=== PATIENT | male | born 1960 | race Caucasian/White ===

== ENCOUNTER 2018-03-31 13:55 | Emergency (ER) | payer MEDICAID, OTHER ==
[~2018-03-31] VITALS: Ht 167.6 cm; Wt 136.1 kg
[~2018-03-31 13:55] MED LIST: ALBUAER3 IN; FLUO-125 PO; GEMF600T3 PO; GLYB5TAB8 PO; HYDR-2598 PO; METF-370 PO; NOR10T PO; TERA5CAP42 PO
[2018-03-31 14:11] VITALS: BP 140/67
[2018-03-31] MEDS ORDERED: HYDROcodone-ACET 7.5/325MG TAB PO ONE (16:15)
== END 2018-03-31 16:49 | disposition home or self-care (01) ==
LOC: ER 13:55
DX: S82.891A Other fracture of right lower leg, initial encounter for closed fracture (principal); S01.01XA Laceration without foreign body of scalp, initial encounter; J44.9 Chronic obstructive pulmonary disease, unspecified; E11.9 Type 2 diabetes mellitus without complications; W01.0XXA Fall on same level from slipping, tripping and stumbling without subsequent striking against object, initial encounter; Y93.89 Activity, other specified; Y92.89 Other specified places as the place of occurrence of the external cause; Y99.8 Other external cause status
CPT/HCPCS: 12002; 29515; 70450; 73610; 82962

== ENCOUNTER 2022-01-31 13:50 | Inpatient (IN) | payer MEDICAID ==
[~2022-01-31] VITALS: Ht 167.6 cm; Wt 140.9 kg
[~2022-01-31 13:50] MED LIST changes: +GEMF-19 PO; -GEMF600T3 PO
[2022-01-31] MEDS ORDERED: HYDROcodone-ACET 5/325MG TAB PO ONE (19:00)
[2022-01-31 22:05] LABS: Basophils # (auto) 0 10 ^3/uL (0-0.2); Basophils % (auto) 0.5 % (0.0-2.0); Eosinophils # (auto) 0.3 10 ^3/uL (0-0.8); Eosinophils % (auto) 3.9 % (0.0-7.0); Hematocrit 51.4 % (41.0-53.0); Hemoglobin 16.6 g/dL (13.5-17.5); Lymphocytes # (auto) 1.1 10 ^3/uL (0.4-5.4); Lymphocytes % (auto) 15.9 % (10.0-50.0); Mean Corpuscular Hemoglobin 28.5 pg (28.0-32.0); Mean Corpuscular Hgb Conc. 32.4 g/dL (32.0-36.0); Mean Corpuscular Volume 88.1 fL (80.0-100.0); Monocytes # (auto) 0.6 10 ^3/uL (0-1.3); Monocytes % (auto) 8.6 % (0.0-12.0); Neutrophils # (auto) 4.9 10 ^3/uL (1.6-8.6); Neutrophils % (auto) 71.1 % (37.0-80.0); Nucleated Red Blood Cells % 0.3 %; Red Blood Cells 5.83 10^6/uL (4.5-5.90); Red Cell Distribution Width 14.5 % (11.8-14.3); White Blood Cell 6.9 10^3/uL (4.4-10.8)
[2022-01-31 22:24] LABS: Albumin 3.3 g/dL (3.4-5.0); BUN/Creatinine Ratio 15.8; Potassium 4.7 mmol/L (3.5-5.1)
[2022-01-31 22:39] LABS: Bilirubin, Total 0.4 mg/dL (0.2-1.0); Total Protein 7.7 g/dL (6.4-8.2)
[2022-01-31] MEDS ORDERED: HYDR-4902 PO (23:06)
[2022-02-01] VITALS (7 sets, daily range): BP systolic 111–132; BP diastolic 56–74
[2022-02-01] MEDS ORDERED: DOCUSATE SOD 100 MG CAP PO PRN (00:15)
[2022-02-01] MEDS ORDERED: MORPHINE SULFATE 4 MG/ML SYR/VIAL IV PRN (00:15)
[2022-02-01] MEDS ORDERED: NITROGLYCERIN 0.4 MG SL TAB SL PRN (00:15)
[2022-02-01] MEDS ORDERED: ONDANSETRON HCL 4 MG/2 ML VIAL IV PRN (00:15)
[2022-02-01] MEDS ORDERED: ACETAMINOPHEN 325 MG TAB PO PRN (00:15)
[2022-02-01] MEDS ORDERED: TEMAZEPAM 15 MG CAP PO PRN (00:15)
[2022-02-01] MEDS ORDERED: MORPHINE SULFATE INJECTION 2 MG/ML SYRG IV PRN (00:15)
[2022-02-01] MEDS ORDERED: HYDROcodone-ACET 5/325MG TAB PO PRN (00:15)
[2022-02-01] MEDS ORDERED: HYDROcodone-ACET 5/325MG TAB PO ONE (00:30)
[2022-02-01] MEDS: methylPREDNISolone SOD SUCC 125 MG/2 ML VL IV SCH ×3 (06:00→21:23)
[2022-02-01] MEDS: MULTIPLE VITAMIN TAB PO SCH (10:53)
[2022-02-01] MEDS: ZINC SULFATE 220mg CAP or TAB PO SCH (10:53)
[2022-02-01] MEDS: ASCORBIC ACID 500 MG TAB PO SCH ×2 (10:53→21:23)
[2022-02-01] MEDS: ENOXAPARIN SOD 40 MG/0.4 ML SYRINGE SC SCH (10:54)
[2022-02-01] MEDS: levoFLOXacin 500MG 100 ML IV SCH (10:54)
[2022-02-02 02:00] VITALS: BP 132/74
[2022-02-02 05:00] VITALS: BP 103/51
[2022-02-02 05:23] LABS: Basophils # (auto) 0 10 ^3/uL (0-0.2); Basophils % (auto) 0.4 % (0.0-2.0); Eosinophils # (auto) 0 10 ^3/uL (0-0.8); Hematocrit 50.3 % (41.0-53.0); Hemoglobin 16.7 g/dL (13.5-17.5); Lymphocytes # (auto) 0.6 10 ^3/uL (0.4-5.4); Lymphocytes % (auto) 7.7 % (10.0-50.0); Mean Corpuscular Hgb Conc. 33.3 g/dL (32.0-36.0); Mean Corpuscular Volume 87.2 fL (80.0-100.0); Monocytes # (auto) 0.3 10 ^3/uL (0-1.3); Monocytes % (auto) 3.2 % (0.0-12.0); Neutrophils # (auto) 7.4 10 ^3/uL (1.6-8.6); Neutrophils % (auto) 88.7 % (37.0-80.0); Nucleated Red Blood Cells % 0.5 %; Red Blood Cells 5.76 10^6/uL (4.5-5.90); Red Cell Distribution Width 14.2 % (11.8-14.3); White Blood Cell 8.3 10^3/uL (4.4-10.8)
[2022-02-02] MEDS: methylPREDNISolone SOD SUCC 125 MG/2 ML VL IV SCH ×2 (05:24→14:33)
[2022-02-02 05:42] LABS: Albumin 3.2 g/dL (3.4-5.0); Calcium 9.2 mg/dL (8.5-10.1); Potassium 4.7 mmol/L (3.5-5.1); Uric Acid 5.5 mg/dL (3.5-7.2)
[2022-02-02 05:52] LABS: BUN/Creatinine Ratio 21.1; Bilirubin, Total 0.4 mg/dL (0.2-1.0); CRP High Sensitivity 0.96 mg/dL (< 0.3)
[2022-02-02] MEDS ORDERED: IOHEXOL 350 MG/ML 100ML IJ ONE (07:25)
[2022-02-02 08:25] VITALS: BP 111/68
[2022-02-02] MEDS: ASCORBIC ACID 500 MG TAB PO SCH ×2 (11:08→21:05)
[2022-02-02] MEDS: MULTIPLE VITAMIN TAB PO SCH (11:08)
[2022-02-02] MEDS: ENOXAPARIN SOD 40 MG/0.4 ML SYRINGE SC SCH (11:08)
[2022-02-02] MEDS: ZINC SULFATE 220mg CAP or TAB PO SCH (11:08)
[2022-02-02] MEDS: levoFLOXacin 500MG 100 ML IV SCH (11:09)
[2022-02-02 17:30] VITALS: BP 115/46
[2022-02-02] MEDS: DexAMETHasone 4 MG TAB PO SCH (21:05)
[2022-02-02 22:00] VITALS: BP 117/63
[2022-02-03 05:00] VITALS: BP 114/64
[2022-02-03 05:41] LABS: Albumin 3.1 g/dL (3.4-5.0); Calcium 8.8 mg/dL (8.5-10.1); Potassium 5.1 mmol/L (3.5-5.1)
[2022-02-03 05:44] LABS: BUN/Creatinine Ratio 23.3
[2022-02-03 05:47] LABS: Basophils # (auto) 0 10 ^3/uL (0-0.2); Basophils % (auto) 0.3 % (0.0-2.0); Bilirubin, Total 0.2 mg/dL (0.2-1.0); Eosinophils # (auto) 0 10 ^3/uL (0-0.8); Eosinophils % (auto) 0.1 % (0.0-7.0); Hematocrit 50.4 % (41.0-53.0); Hemoglobin 16.3 g/dL (13.5-17.5); Lymphocytes # (auto) 0.8 10 ^3/uL (0.4-5.4); Lymphocytes % (auto) 6.3 % (10.0-50.0); Mean Corpuscular Hemoglobin 28.5 pg (28.0-32.0); Mean Corpuscular Hgb Conc. 32.4 g/dL (32.0-36.0); Monocytes # (auto) 0.7 10 ^3/uL (0-1.3); Monocytes % (auto) 5.5 % (0.0-12.0); Neutrophils # (auto) 11.4 10 ^3/uL (1.6-8.6); Neutrophils % (auto) 87.8 % (37.0-80.0); Nucleated Red Blood Cells % 0.2 %; Red Blood Cells 5.73 10^6/uL (4.5-5.90); Red Cell Distribution Width 14.5 % (11.8-14.3); Total Protein 7.4 g/dL (6.4-8.2)
[2022-02-03 09:00] VITALS: BP 116/51
[2022-02-03] MEDS: ENOXAPARIN SOD 40 MG/0.4 ML SYRINGE SC SCH (10:10)
[2022-02-03] MEDS: ZINC SULFATE 220mg CAP or TAB PO SCH (10:10)
[2022-02-03] MEDS: MULTIPLE VITAMIN TAB PO SCH (10:10)
[2022-02-03] MEDS: DexAMETHasone 4 MG TAB PO SCH (10:10)
[2022-02-03] MEDS: ASCORBIC ACID 500 MG TAB PO SCH (10:10)
[2022-02-03 13:00] VITALS: BP 115/59
[2022-02-03] MEDS ORDERED: DEX4T PO (13:23)
[2022-02-03 14:43] VITALS: BP 115/59
== END 2022-02-03 16:07 | disposition home or self-care (01) | DRG 48 ==
LOC: ER 13:50 → TELE 02-01 00:03 → TELE-WESTW 02-01 08:59
PROVIDERS: ADMIT Internal Medicine; ATTEND Internal Medicine
PROC: 5A09357 Assistance with Respiratory Ventilation, Less than 24 Consecutive Hours, Continuous Positive Airway Pressure (ICD-10-PCS; principal; 2022-02-01)
PROC: 5A09357 Assistance with Respiratory Ventilation, Less than 24 Consecutive Hours, Continuous Positive Airway Pressure (ICD-10-PCS; 2022-02-02)
DX: G56.03 Carpal tunnel syndrome, bilateral upper limbs (principal); J96.20 Acute and chronic respiratory failure, unspecified whether with hypoxia or hypercapnia; Z99.81 Dependence on supplemental oxygen; J44.1 Chronic obstructive pulmonary disease with (acute) exacerbation; G47.33 Obstructive sleep apnea (adult) (pediatric); I10 Essential (primary) hypertension; J98.11 Atelectasis; E88.09 Other disorders of plasma-protein metabolism, not elsewhere classified; E66.01 Morbid (severe) obesity due to excess calories; Z20.822 Contact with and (suspected) exposure to COVID-19; E11.65 Type 2 diabetes mellitus with hyperglycemia; Z68.43 Body mass index [BMI] 50.0-59.9, adult; Z79.84 Long term (current) use of oral hypoglycemic drugs
CPT/HCPCS: 36415; 71045; 71275; 72125; 73100; 73110; 80053; 80061; 82306; 82607; 83036; 83880; 84484; 84550; 85025; 85379; 85652; 86141; 86431; 93306; 93970; 94660; G0378; J1956

== ENCOUNTER 2022-02-24 12:19 | Inpatient (IN) | payer MEDICAID ==
[~2022-02-24] VITALS: Ht 167.6 cm; Wt 135.9 kg
[~2022-02-24 12:19] MED LIST changes: +DEX4T PO; -HYDR-2598 PO; +HYDR-4902 PO; -NOR10T PO
[2022-02-24 13:14] LABS: Basophils # (auto) 0 10 ^3/uL (0-0.2); Basophils % (auto) 0.7 % (0.0-2.0); Eosinophils # (auto) 0.3 10 ^3/uL (0-0.8); Eosinophils % (auto) 4.2 % (0.0-7.0); Hematocrit 49.7 % (41.0-53.0); Hemoglobin 16.5 g/dL (13.5-17.5); Lymphocytes # (auto) 1.2 10 ^3/uL (0.4-5.4); Lymphocytes % (auto) 19.3 % (10.0-50.0); Mean Corpuscular Hemoglobin 28.4 pg (28.0-32.0); Mean Corpuscular Hgb Conc. 33.2 g/dL (32.0-36.0); Mean Corpuscular Volume 85.7 fL (80.0-100.0); Monocytes # (auto) 0.4 10 ^3/uL (0-1.3); Neutrophils # (auto) 4.3 10 ^3/uL (1.6-8.6); Neutrophils % (auto) 68.8 % (37.0-80.0); Nucleated Red Blood Cells % 0.3 %; Red Cell Distribution Width 14.4 % (11.8-14.3); White Blood Cell 6.2 10^3/uL (4.4-10.8)
[2022-02-24 13:43] LABS: Albumin 3.2 g/dL (3.4-5.0); Calcium 9.5 mg/dL (8.5-10.1); Potassium 4.5 mmol/L (3.5-5.1)
[2022-02-24 13:46] LABS: BUN/Creatinine Ratio 22.4; Bilirubin, Total 0.3 mg/dL (0.2-1.0); Total Protein 7.8 g/dL (6.4-8.2)
[2022-02-24] MEDS ORDERED: IOHEXOL 350 MG/ML 100ML IJ ONE (14:44)
[2022-02-24] MEDS ORDERED: methylPREDNISolone SOD SUCC 125 MG/2 ML VL IV ONE (14:45)
[2022-02-24] MEDS ORDERED: FUROSEMIDE 20 MG/2 ML VIAL IV ONE (14:45)
[2022-02-24] MEDS ORDERED: ONDANSETRON HCL 4 MG/2 ML VIAL IV PRN (16:00)
[2022-02-24] MEDS ORDERED: MORPHINE SULFATE INJECTION 2 MG/ML SYRG IV PRN (16:00)
[2022-02-24] MEDS ORDERED: ACETAMINOPHEN 325 MG TAB PO PRN (16:00)
[2022-02-24] MEDS ORDERED: NITROGLYCERIN 0.4 MG SL TAB SL PRN (16:00)
[2022-02-24] MEDS ORDERED: DOCUSATE SOD 100 MG CAP PO PRN (16:00)
[2022-02-24 18:50] LABS: Urine Bacteria NONE SEEN /hpf (None Seen); Urine Blood Negative /uL (Negative); Urine Hyaline Cast FEW /lpf (0 - 2); Urine Mucus FEW (None Seen); Urine Specific Gravity 1.049 (1.001-1.035); Urine WBC <1 /hpf (0 - 3)
[2022-02-24 22:00] VITALS: BP 122/55
[2022-02-24 22:09] VITALS: BP 123/84
[2022-02-25] VITALS (8 sets, daily range): BP systolic 104–127; BP diastolic 41–67
[2022-02-25 06:23] LABS: Basophils # (auto) 0 10 ^3/uL (0-0.2); Eosinophils # (auto) 0 10 ^3/uL (0-0.8); Hematocrit 48.2 % (41.0-53.0); Hemoglobin 16.3 g/dL (13.5-17.5); Lymphocytes # (auto) 0.7 10 ^3/uL (0.4-5.4); Lymphocytes % (auto) 13.5 % (10.0-50.0); Mean Corpuscular Hemoglobin 29.4 pg (28.0-32.0); Mean Corpuscular Hgb Conc. 33.9 g/dL (32.0-36.0); Mean Corpuscular Volume 86.6 fL (80.0-100.0); Monocytes # (auto) 0.1 10 ^3/uL (0-1.3); Monocytes % (auto) 2.5 % (0.0-12.0); Neutrophils # (auto) 4.2 10 ^3/uL (1.6-8.6); Nucleated Red Blood Cells % 0.1 %; Red Blood Cells 5.56 10^6/uL (4.5-5.90); Red Cell Distribution Width 14.4 % (11.8-14.3)
[2022-02-25 06:25] LABS: Potassium 4.6 mmol/L (3.5-5.1)
[2022-02-25 06:34] LABS: Albumin 3.2 g/dL (3.4-5.0); Bilirubin, Total 0.4 mg/dL (0.2-1.0); Calcium 9.4 mg/dL (8.5-10.1); Total Protein 7.8 g/dL (6.4-8.2)
[2022-02-25] MEDS ORDERED: ENOXAPARIN SOD 40 MG/0.4 ML SYRINGE SC SCH (10:00)
[2022-02-25] MEDS: methylPREDNISolone SOD SUCC 40 MG/ML VL IV SCH ×2 (13:31→22:13)
[2022-02-25] MEDS: IPRATROPIUM BROM 0.5 MG/2.5ML INH SOL NEB SCH ×2 (14:33→18:35)
[2022-02-25] MEDS: BUDESONIDE (INHALATION) 0.5 MG/2 ML NEB NEB SCH (18:35)
[2022-02-25] MEDS: ENOXAPARIN SOD 40 MG/0.4 ML SYRINGE SC SCH (22:13)
[2022-02-26 05:02] VITALS: BP 112/47
[2022-02-26] MEDS: methylPREDNISolone SOD SUCC 40 MG/ML VL IV SCH ×3 (06:00→21:12)
[2022-02-26] MEDS: IPRATROPIUM BROM 0.5 MG/2.5ML INH SOL NEB SCH ×5 (06:36→22:54)
[2022-02-26] MEDS: BUDESONIDE (INHALATION) 0.5 MG/2 ML NEB NEB SCH ×2 (06:36→18:49)
[2022-02-26 08:00] VITALS: BP_SYST 110; BP_SYST 119; BP_DIAS 46; BP_DIAS 56
[2022-02-26] MEDS: cefTRIAXone 1GM/50ML D5W 50 ML IV SCH (08:24)
[2022-02-26] MEDS: ENOXAPARIN SOD 40 MG/0.4 ML SYRINGE SC SCH ×2 (10:24→21:11)
[2022-02-26] MEDS: AZITHROMYCIN 250 MG TAB PO SCH (10:24)
[2022-02-26 12:00] VITALS: BP 145/95
[2022-02-26 16:00] VITALS: BP 116/50
[2022-02-26 21:47] VITALS: BP 129/72
[2022-02-27 05:13] VITALS: BP 143/84
[2022-02-27] MEDS: methylPREDNISolone SOD SUCC 40 MG/ML VL IV SCH ×3 (05:57→22:11)
[2022-02-27] MEDS: BUDESONIDE (INHALATION) 0.5 MG/2 ML NEB NEB SCH ×2 (06:15→19:06)
[2022-02-27] MEDS: IPRATROPIUM BROM 0.5 MG/2.5ML INH SOL NEB SCH ×5 (06:15→22:35)
[2022-02-27] MEDS: cefTRIAXone 1GM/50ML D5W 50 ML IV SCH (08:19)
[2022-02-27] MEDS ORDERED: FUROSEMIDE 40 MG/4 ML VIAL IV ONE (08:30)
[2022-02-27 09:00] VITALS: BP 110/71
[2022-02-27] MEDS: ENOXAPARIN SOD 40 MG/0.4 ML SYRINGE SC SCH ×2 (10:13→22:11)
[2022-02-27] MEDS: AZITHROMYCIN 250 MG TAB PO SCH (10:13)
[2022-02-27] MEDS ORDERED: DEXTROSE (50%) 50ML SYRG IV PRN (11:30)
[2022-02-27] MEDS: InsuLIN REG 1unit/0.01ml Soln (100units/ml) SC SCH ×3 (12:11→22:10)
[2022-02-27] MEDS: ACCU-CHEK COMFORT CURVE STRIP VI SCH ×3 (12:18→22:11)
[2022-02-27 14:00] VITALS: BP 129/82
[2022-02-27] MEDS: glyBURIDE 5 MG TAB PO SCH ×2 (15:23→22:13)
[2022-02-27 17:00] VITALS: BP 126/70
[2022-02-27 22:00] VITALS: BP 128/68
[2022-02-27] MEDS: metFORMIN HYDROCHLORIDE 500 MG TAB PO SCH (22:12)
[2022-02-28] VITALS (8 sets, daily range): BP systolic 108–128; BP diastolic 60–71
[2022-02-28] MEDS: methylPREDNISolone SOD SUCC 40 MG/ML VL IV SCH ×3 (06:44→21:34)
[2022-02-28] MEDS: glyBURIDE 5 MG TAB PO SCH ×3 (06:45→21:41)
[2022-02-28] MEDS: ACCU-CHEK COMFORT CURVE STRIP VI SCH ×4 (06:45→21:35)
[2022-02-28] MEDS: InsuLIN REG 1unit/0.01ml Soln (100units/ml) SC SCH ×4 (06:47→21:29)
[2022-02-28] MEDS: IPRATROPIUM BROM 0.5 MG/2.5ML INH SOL NEB SCH ×5 (08:03→22:16)
[2022-02-28] MEDS: BUDESONIDE (INHALATION) 0.5 MG/2 ML NEB NEB SCH ×2 (08:03→18:56)
[2022-02-28] MEDS: ENOXAPARIN SOD 40 MG/0.4 ML SYRINGE SC SCH ×2 (09:29→21:35)
[2022-02-28] MEDS: cefTRIAXone 1GM/50ML D5W 50 ML IV SCH (09:29)
[2022-02-28] MEDS: metFORMIN HYDROCHLORIDE 500 MG TAB PO SCH ×2 (09:30→21:34)
[2022-02-28] MEDS: FLUoxetine HCL 20 MG CAP PO SCH (09:30)
[2022-02-28] MEDS: TERAZOSIN HCL 5 MG CAP PO SCH (09:30)
[2022-02-28] MEDS: GEMFIBROZIL 600 MG TAB PO SCH (09:30)
[2022-02-28] MEDS: AZITHROMYCIN 250 MG TAB PO SCH (09:30)
[2022-02-28] MEDS ORDERED: BUDE0.5S IN (17:12)
[2022-02-28] MEDS ORDERED: ALB5IS NEB (17:12)
[2022-02-28] MEDS ORDERED: DOXY-346 PO (17:12)
[2022-02-28] MEDS ORDERED: PRED20TA2 PO (17:13)
[2022-03-01 05:00] VITALS: BP 132/78
[2022-03-01] MEDS: methylPREDNISolone SOD SUCC 40 MG/ML VL IV SCH (06:12)
[2022-03-01] MEDS: ACCU-CHEK COMFORT CURVE STRIP VI SCH ×2 (06:13→11:50)
[2022-03-01] MEDS: InsuLIN REG 1unit/0.01ml Soln (100units/ml) SC SCH ×2 (06:14→12:02)
[2022-03-01] MEDS: IPRATROPIUM BROM 0.5 MG/2.5ML INH SOL NEB SCH ×2 (06:18→10:01)
[2022-03-01] MEDS: BUDESONIDE (INHALATION) 0.5 MG/2 ML NEB NEB SCH (06:19)
[2022-03-01] MEDS: glyBURIDE 5 MG TAB PO SCH (07:03)
[2022-03-01 08:00] VITALS: BP 123/69
[2022-03-01 09:00] VITALS: BP 123/69
[2022-03-01] MEDS: cefTRIAXone 1GM/50ML D5W 50 ML IV SCH (09:15)
[2022-03-01] MEDS: metFORMIN HYDROCHLORIDE 500 MG TAB PO SCH (10:00)
[2022-03-01] MEDS: TERAZOSIN HCL 5 MG CAP PO SCH (10:00)
[2022-03-01] MEDS: GEMFIBROZIL 600 MG TAB PO SCH (10:00)
[2022-03-01] MEDS: ENOXAPARIN SOD 40 MG/0.4 ML SYRINGE SC SCH (10:00)
[2022-03-01] MEDS: FLUoxetine HCL 20 MG CAP PO SCH (10:00)
== END 2022-03-01 13:00 | disposition home health service (06) | DRG 139 ==
LOC: ER 12:19 → TELE 15:47 → TELE-EAST 20:35
PROVIDERS: ADMIT Nurse Practitioner; ATTEND Nurse Practitioner
PROC: 5A09357 Assistance with Respiratory Ventilation, Less than 24 Consecutive Hours, Continuous Positive Airway Pressure (ICD-10-PCS; principal; 2022-02-24)
PROC: 5A09357 Assistance with Respiratory Ventilation, Less than 24 Consecutive Hours, Continuous Positive Airway Pressure (ICD-10-PCS; 2022-02-25)
PROC: 5A09357 Assistance with Respiratory Ventilation, Less than 24 Consecutive Hours, Continuous Positive Airway Pressure (ICD-10-PCS; 2022-02-26)
PROC: 5A09357 Assistance with Respiratory Ventilation, Less than 24 Consecutive Hours, Continuous Positive Airway Pressure (ICD-10-PCS; 2022-02-27)
PROC: 5A09357 Assistance with Respiratory Ventilation, Less than 24 Consecutive Hours, Continuous Positive Airway Pressure (ICD-10-PCS; 2022-02-28)
DX: J18.9 Pneumonia, unspecified organism (principal); J96.21 Acute and chronic respiratory failure with hypoxia; I50.43 Acute on chronic combined systolic (congestive) and diastolic (congestive) heart failure; J44.1 Chronic obstructive pulmonary disease with (acute) exacerbation; I11.0 Hypertensive heart disease with heart failure; E11.65 Type 2 diabetes mellitus with hyperglycemia; E66.01 Morbid (severe) obesity due to excess calories; G47.33 Obstructive sleep apnea (adult) (pediatric); F32.A Depression, unspecified; R00.1 Bradycardia, unspecified; M19.90 Unspecified osteoarthritis, unspecified site; J98.11 Atelectasis; J44.0 Chronic obstructive pulmonary disease with (acute) lower respiratory infection; Z80.6 Family history of leukemia; Z87.01 Personal history of pneumonia (recurrent); Z99.81 Dependence on supplemental oxygen; Z68.42 Body mass index [BMI] 45.0-49.9, adult; Z80.1 Family history of malignant neoplasm of trachea, bronchus and lung; Z79.899 Other long term (current) drug therapy
CPT/HCPCS: 36415; 71045; 71275; 80053; 81001; 82962; 83880; 84484; 85025; 87081; 93005; 94640; 94660; 96374; 96375; 99291; G0378; J0696; J1815

== ENCOUNTER 2022-09-22 19:26 | Inpatient (IN) | payer MEDICAID ==
[~2022-09-22] VITALS: Ht 167.6 cm; Wt 140.3 kg
[~2022-09-22 19:26] MED LIST changes: +ALB5IS NEB; +BUDE0.5S IN; -DEX4T PO; +DOXY-346 PO; +PRED20TA2 PO
[2022-09-22 20:22] LABS: Basophils # (auto) 0 10 ^3/uL (0-0.2); Basophils % (auto) 0.6 % (0.0-2.0); Eosinophils # (auto) 0.3 10 ^3/uL (0-0.8); Eosinophils % (auto) 5.6 % (0.0-7.0); Hematocrit 47.5 % (41.0-53.0); Hemoglobin 15.4 g/dL (13.5-17.5); Lymphocytes # (auto) 1.7 10 ^3/uL (0.4-5.4); Lymphocytes % (auto) 29.3 % (10.0-50.0); Mean Corpuscular Hemoglobin 28.2 pg (28.0-32.0); Mean Corpuscular Hgb Conc. 32.5 g/dL (32.0-36.0); Mean Corpuscular Volume 86.5 fL (80.0-100.0); Monocytes # (auto) 0.5 10 ^3/uL (0-1.3); Monocytes % (auto) 9.1 % (0.0-12.0); Neutrophils # (auto) 3.3 10 ^3/uL (1.6-8.6); Neutrophils % (auto) 55.4 % (37.0-80.0); Nucleated Red Blood Cells % 0.1 %; Red Blood Cells 5.48 10^6/uL (4.5-5.90); Red Cell Distribution Width 15.5 % (11.8-14.3); White Blood Cell 5.9 10^3/uL (4.4-10.8)
[2022-09-22 20:37] LABS: INR 0.93 (0.9-1.15); Partial Thromboplastin Time 26.3 sec (24.6-33.4)
[2022-09-22 20:41] LABS: Albumin 3.6 g/dL (3.4-5.0); BUN/Creatinine Ratio 18.6; Calcium 8.8 mg/dL (8.5-10.1); Potassium 4.8 mmol/L (3.5-5.1)
[2022-09-22 20:44] LABS: Bilirubin, Total 0.4 mg/dL (0.2-1.0); Total Protein 7.2 g/dL (6.4-8.2)
[2022-09-22] MEDS ORDERED: ALBUTEROL SULF 2.5 MG/0.5ML(0.5%) NEB SOLN NEB ONE (22:00)
[2022-09-23] MEDS ORDERED: ALBUTEROL SULF 2.5 MG/0.5ML(0.5%) NEB SOLN NEB ONE ×2 (02:15→03:30)
[2022-09-23] MEDS ORDERED: DexAMETHasone SOD PHOS 10MG/1ML VIAL INJ IV ONE (03:30)
[2022-09-23] MEDS ORDERED: SODIUM CHLORIDE 0.9% 1,000 ML IV ONE (03:30)
[2022-09-23] MEDS ORDERED: DOCUSATE SOD 100 MG CAP PO PRN (04:00)
[2022-09-23] MEDS ORDERED: IPRATROPIUM BROM 0.5 MG/2.5ML INH SOL NEB PRN (04:00)
[2022-09-23] MEDS ORDERED: ALBUTEROL SULF 2.5 MG/0.5ML(0.5%) NEB SOLN NEB PRN (04:00)
[2022-09-23] MEDS ORDERED: ONDANSETRON HCL 4 MG/2 ML VIAL IV PRN (04:00)
[2022-09-23] MEDS ORDERED: HYDROcodone-ACET 5/325MG TAB PO PRN (04:00)
[2022-09-23] MEDS ORDERED: DEXTROSE (50%) 50ML SYRG IV PRN (04:00)
[2022-09-23] MEDS ORDERED: ACETAMINOPHEN 325 MG TAB PO PRN (04:00)
[2022-09-23] MEDS: methylPREDNISolone SOD SUCC 40 MG/ML VL IV SCH ×3 (04:15→22:27)
[2022-09-23] MEDS ORDERED: NITROGLYCERIN 0.4 MG SL TAB SL PRN (04:30)
[2022-09-23] MEDS ORDERED: MORPHINE SULFATE INJ 2 MG/ml SYRG IV PRN (04:30)
[2022-09-23] MEDS ORDERED: AZITHROMYCIN 500MG/ 250ML 250 ML IV ONE (04:30)
[2022-09-23] MEDS: SODIUM CHLOR 0.9% PF (SALINE LOCK) 10ML VIAL/SYR IV SCH ×3 (06:01→22:27)
[2022-09-23 06:30] VITALS: BP 129/65
[2022-09-23 06:40] LABS: Basophils # (auto) 0 10 ^3/uL (0-0.2); Basophils % (auto) 0.5 % (0.0-2.0); Eosinophils # (auto) 0.2 10 ^3/uL (0-0.8); Eosinophils % (auto) 2.4 % (0.0-7.0); Hematocrit 44.4 % (41.0-53.0); Hemoglobin 14.4 g/dL (13.5-17.5); Lymphocytes # (auto) 1.1 10 ^3/uL (0.4-5.4); Lymphocytes % (auto) 17.5 % (10.0-50.0); Mean Corpuscular Hemoglobin 28.4 pg (28.0-32.0); Mean Corpuscular Hgb Conc. 32.4 g/dL (32.0-36.0); Mean Corpuscular Volume 87.7 fL (80.0-100.0); Monocytes # (auto) 0.4 10 ^3/uL (0-1.3); Monocytes % (auto) 6.5 % (0.0-12.0); Neutrophils # (auto) 4.7 10 ^3/uL (1.6-8.6); Neutrophils % (auto) 73.1 % (37.0-80.0); Nucleated Red Blood Cells % 0.1 %; Red Blood Cells 5.06 10^6/uL (4.5-5.90); Red Cell Distribution Width 15.6 % (11.8-14.3); White Blood Cell 6.4 10^3/uL (4.4-10.8)
[2022-09-23] MEDS: ACCU-CHEK COMFORT CURVE STRIP VI SCH ×4 (06:56→22:27)
[2022-09-23 06:57] LABS: Albumin 3.5 g/dL (3.4-5.0); BUN/Creatinine Ratio 21.7; Calcium 8.4 mg/dL (8.5-10.1); Potassium 4.3 mmol/L (3.5-5.1)
[2022-09-23] MEDS: InsuLIN REG 1unit/0.01ml Soln (100units/ml) SC SCH ×3 (06:58→17:34)
[2022-09-23 07:00] LABS: Bilirubin, Total 0.4 mg/dL (0.2-1.0); Total Protein 7.3 g/dL (6.4-8.2)
[2022-09-23] MEDS ORDERED: ENOXAPARIN SOD 40 MG/0.4 ML SYRINGE SC SCH (10:00)
[2022-09-23] MEDS: FAMOTIDINE (10MG/ML) 2ML VL IV SCH ×2 (12:05→22:27)
[2022-09-23] MEDS: AZITHROMYCIN 500MG/ 250ML 250 ML IV SCH (12:05)
[2022-09-23] MEDS ORDERED: REMDESIVIR PER PHARMACY 0 ML IV SCH (12:15)
[2022-09-23] MEDS ORDERED: REMDESIVIR 200 MG in NS 210ml LOADING DOSE ADULT IV ONE (12:45)
[2022-09-23] MEDS ORDERED: OSELTAMIVIR 75 MG CAP PO ONE (13:30)
[2022-09-23] MEDS ORDERED: OSELTAMIVIR 75 MG CAP PO SCH (14:00)
[2022-09-23] MEDS ORDERED: REMDESIVIR 100mg 100 MG in SODIUM CHL 0.9% 230 ML IV SCH (15:00)
[2022-09-23] MEDS: ALBUTEROL SULF HFA 90MCG INH 200DOSE IN SCH ×2 (15:39→22:00)
[2022-09-23] MEDS ORDERED: INSU1INJ19 SC (18:30)
[2022-09-23 22:00] VITALS: BP 128/62
[2022-09-23] MEDS ORDERED: InsuLIN REG 1unit/0.01ml Soln (100units/ml) SC SCH (22:00)
[2022-09-23] MEDS: OSELTAMIVIR 75 MG CAP PO SCH (22:00)
[2022-09-23] MEDS: ENOXAPARIN SOD 40 MG/0.4 ML SYRINGE SC SCH (22:27)
[2022-09-24 05:01] LABS: Basophils # (auto) 0 10 ^3/uL (0-0.2); Basophils % (auto) 0.1 % (0.0-2.0); Eosinophils # (auto) 0 10 ^3/uL (0-0.8); Hematocrit 46.2 % (41.0-53.0); Hemoglobin 14.6 g/dL (13.5-17.5); Lymphocytes # (auto) 0.7 10 ^3/uL (0.4-5.4); Lymphocytes % (auto) 10.6 % (10.0-50.0); Mean Corpuscular Hemoglobin 27.7 pg (28.0-32.0); Mean Corpuscular Hgb Conc. 31.7 g/dL (32.0-36.0); Mean Corpuscular Volume 87.3 fL (80.0-100.0); Monocytes # (auto) 0.2 10 ^3/uL (0-1.3); Monocytes % (auto) 3.5 % (0.0-12.0); Neutrophils # (auto) 5.8 10 ^3/uL (1.6-8.6); Neutrophils % (auto) 85.8 % (37.0-80.0); Red Blood Cells 5.29 10^6/uL (4.5-5.90); Red Cell Distribution Width 15.6 % (11.8-14.3); White Blood Cell 6.8 10^3/uL (4.4-10.8)
[2022-09-24 05:22] LABS: Albumin 3.4 g/dL (3.4-5.0); Calcium 8.5 mg/dL (8.5-10.1)
[2022-09-24 05:28] VITALS: BP 107/57
[2022-09-24 05:30] LABS: BUN/Creatinine Ratio 20.7; Bilirubin, Total 0.5 mg/dL (0.2-1.0)
[2022-09-24] MEDS: methylPREDNISolone SOD SUCC 40 MG/ML VL IV SCH ×2 (05:52→14:37)
[2022-09-24] MEDS: SODIUM CHLOR 0.9% PF (SALINE LOCK) 10ML VIAL/SYR IV SCH ×2 (05:52→14:36)
[2022-09-24] MEDS: ACCU-CHEK COMFORT CURVE STRIP VI SCH ×2 (05:53→12:18)
[2022-09-24] MEDS: InsuLIN REG 1unit/0.01ml Soln (100units/ml) SC SCH ×2 (06:03→12:32)
[2022-09-24] MEDS: ALBUTEROL SULF HFA 90MCG INH 200DOSE IN SCH ×2 (06:32→14:05)
[2022-09-24 08:46] VITALS: BP 106/43
[2022-09-24] MEDS: FAMOTIDINE (10MG/ML) 2ML VL IV SCH (09:41)
[2022-09-24] MEDS: AZITHROMYCIN 500MG/ 250ML 250 ML IV SCH (09:42)
[2022-09-24] MEDS: ENOXAPARIN SOD 40 MG/0.4 ML SYRINGE SC SCH (09:42)
[2022-09-24] MEDS ORDERED: GEMFIBROZIL 600 MG TAB PO SCH (10:00)
[2022-09-24] MEDS ORDERED: ASCORBIC ACID 500 MG TAB PO SCH (10:00)
[2022-09-24] MEDS ORDERED: ZINC SULFATE 220mg CAP or TAB PO SCH (10:00)
[2022-09-24] MEDS ORDERED: TERAZOSIN HCL 5 MG CAP PO SCH (10:00)
[2022-09-24] MEDS ORDERED: FLUoxetine HCL 20 MG CAP PO SCH (10:00)
[2022-09-24] MEDS ORDERED: CHOLECALCIFEROL (VITD3) 1,000UNIT=25mCg TAB PO SCH (10:00)
[2022-09-24] MEDS: OSELTAMIVIR 75 MG CAP PO SCH (10:00)
[2022-09-24 12:39] VITALS: BP 110/56
[2022-09-24] MEDS ORDERED: REMDESIVIR 100mg 100 MG in SODIUM CHL 0.9% 230 ML IV SCH (15:00)
[2022-09-24] MEDS ORDERED: BUDE0.5S IN (16:11)
[2022-09-24] MEDS ORDERED: ALB5IS NEB (16:11)
[2022-09-24] MEDS ORDERED: TAMIFLU PO (16:11)
[2022-09-24] MEDS ORDERED: AZIT500T66 PO (16:11)
[2022-09-24] MEDS ORDERED: PRED20TA2 PO (16:11)
[2022-09-24 16:26] VITALS: BP 119/58
== END 2022-09-24 17:00 | disposition home or self-care (01) | DRG 137 ==
LOC: ER 19:26 → TELE 09-23 04:19 → TELE-EAST 09-23 17:09
PROVIDERS: ADMIT Nurse Practitioner Family; ATTEND Hospitalist
PROC: XW033E5 Introduction of Remdesivir Anti-infective into Peripheral Vein, Percutaneous Approach, New Technology Group 5 (ICD-10-PCS; principal; 2022-09-23)
PROC: 5A09357 Assistance with Respiratory Ventilation, Less than 24 Consecutive Hours, Continuous Positive Airway Pressure (ICD-10-PCS; 2022-09-23)
PROC: 5A09357 Assistance with Respiratory Ventilation, Less than 24 Consecutive Hours, Continuous Positive Airway Pressure (ICD-10-PCS; 2022-09-24)
DX: U07.1 COVID-19 (principal); J96.21 Acute and chronic respiratory failure with hypoxia; J18.9 Pneumonia, unspecified organism; I42.9 Cardiomyopathy, unspecified; E86.0 Dehydration; J44.0 Chronic obstructive pulmonary disease with (acute) lower respiratory infection; Z20.822 Contact with and (suspected) exposure to COVID-19; J10.1 Influenza due to other identified influenza virus with other respiratory manifestations; J44.1 Chronic obstructive pulmonary disease with (acute) exacerbation; E11.65 Type 2 diabetes mellitus with hyperglycemia; E66.01 Morbid (severe) obesity due to excess calories; G47.00 Insomnia, unspecified; I10 Essential (primary) hypertension; Z23 Encounter for immunization; Z80.1 Family history of malignant neoplasm of trachea, bronchus and lung; Z80.6 Family history of leukemia; Z87.891 Personal history of nicotine dependence
CPT/HCPCS: 36415; 71045; 80053; 82962; 83880; 84484; 85025; 85610; 85730; 87426; 87804; 93005; 93970; 94640; 94660; 94760; 96365; 96367; 96375; G0378; J1815; J3490

== ENCOUNTER 2023-05-29 09:25 | Inpatient (IN) | payer MEDICAID ==
[~2023-05-29] VITALS: Ht 167.6 cm; Wt 143.0 kg
[~2023-05-29 09:25] MED LIST changes: +AZIT500T66 PO; -DOXY-346 PO; -GEMF-19 PO; +GEMF-66 PO; +INSU1INJ19 SC; +TAMIFLU PO
[2023-05-29 10:23] LABS: Basophils # (auto) 0 10 ^3/uL (0-0.2); Basophils % (auto) 0.5 % (0.0-2.0); Eosinophils # (auto) 0.2 10 ^3/uL (0-0.8); Eosinophils % (auto) 4.1 % (0.0-7.0); Hematocrit 47.1 % (41.0-53.0); Hemoglobin 15.3 g/dL (13.5-17.5); Lymphocytes # (auto) 1.8 10 ^3/uL (0.4-5.4); Lymphocytes % (auto) 33.2 % (10.0-50.0); Mean Corpuscular Hgb Conc. 32.5 g/dL (32.0-36.0); Monocytes # (auto) 0.5 10 ^3/uL (0-1.3); Monocytes % (auto) 9.2 % (0.0-12.0); Neutrophils # (auto) 2.8 10 ^3/uL (1.6-8.6); Nucleated Red Blood Cells % 0.1 %; Red Cell Distribution Width 14.8 % (11.8-14.3); White Blood Cell 5.3 10^3/uL (4.4-10.8)
[2023-05-29 10:39] LABS: Albumin 3.7 g/dL (3.4-5.0); Calcium 8.8 mg/dL (8.5-10.1); Potassium 4.7 mmol/L (3.5-5.1)
[2023-05-29 10:42] LABS: BUN/Creatinine Ratio 26.2 (10.0-20.0); Bilirubin, Total 0.6 mg/dL (0.2-1.0); Total Protein 6.9 g/dL (6.4-8.2)
[2023-05-29 11:00] VITALS: PULSE 72; RESP 15; O2SAT 94
[2023-05-29 11:47] LABS: Urine Bacteria FEW /hpf (None Seen); Urine Blood Negative /uL (Negative); Urine Specific Gravity 1.023 (1.001-1.035); Urine WBC 2 /hpf (0 - 3)
[2023-05-29] MEDS ORDERED: FUROSEMIDE 40 MG/4 ML VIAL IV ONE (14:15)
[2023-05-29] MEDS ORDERED: DEXTROSE (50%) 50ML SYRG IV PRN (16:00)
[2023-05-29] MEDS ORDERED: MORPHINE SULFATE INJ 2 MG/ml SYRG IV PRN (16:00)
[2023-05-29] MEDS ORDERED: NITROGLYCERIN 0.4 MG SL TAB SL PRN (16:00)
[2023-05-29] MEDS ORDERED: ACETAMINOPHEN 325 MG TAB PO PRN (16:00)
[2023-05-29] MEDS ORDERED: HYDROcodone-ACET 5/325MG TAB PO PRN (16:00)
[2023-05-29] MEDS ORDERED: IPRATROPIUM BROM 0.5 MG/2.5ML INH SOL NEB PRN (16:15)
[2023-05-29] MEDS ORDERED: ALBUTEROL SULF 2.5 MG/0.5ML(0.5%) NEB SOLN NEB PRN (16:15)
[2023-05-29] MEDS: InsuLIN REG 1unit/0.01ml Soln (100units/ml) SC SCH ×2 (17:00→22:34)
[2023-05-29] MEDS: ACCU-CHEK COMFORT CURVE STRIP VI SCH ×2 (17:01→22:34)
[2023-05-29 19:30] VITALS: PULSE 73; RESP 13; O2SAT 95
[2023-05-29 19:42] VITALS: BP 104/37; PULSE 66; RESP 20; TEMP 98.3; O2SAT 93
[2023-05-29 21:51] VITALS: BP 113/61; PULSE 72; O2SAT 97
[2023-05-29 21:54] VITALS: O2SAT 97
[2023-05-30] VITALS (12 sets, daily range): BP systolic 99–129; BP diastolic 32–66; PULSE 61–83; RESP 16–23; TEMP 97.9; O2SAT 92–96
[2023-05-30 06:22] LABS: Albumin 3.4 g/dL (3.4-5.0); Calcium 9.1 mg/dL (8.5-10.1); Potassium 4.3 mmol/L (3.5-5.1)
[2023-05-30 06:23] LABS: Basophils # (auto) 0 10 ^3/uL (0-0.2); Basophils % (auto) 0.5 % (0.0-2.0); Eosinophils # (auto) 0.3 10 ^3/uL (0-0.8); Eosinophils % (auto) 4.6 % (0.0-7.0); Hematocrit 46.3 % (41.0-53.0); Hemoglobin 15.2 g/dL (13.5-17.5); Lymphocytes # (auto) 1.8 10 ^3/uL (0.4-5.4); Lymphocytes % (auto) 29.9 % (10.0-50.0); Mean Corpuscular Hemoglobin 29.2 pg (28.0-32.0); Mean Corpuscular Hgb Conc. 32.8 g/dL (32.0-36.0); Mean Corpuscular Volume 89.1 fL (80.0-100.0); Monocytes # (auto) 0.6 10 ^3/uL (0-1.3); Monocytes % (auto) 9.7 % (0.0-12.0); Neutrophils # (auto) 3.3 10 ^3/uL (1.6-8.6); Neutrophils % (auto) 55.3 % (37.0-80.0); Nucleated Red Blood Cells % 0.3 %; Red Blood Cells 5.19 10^6/uL (4.5-5.90); Red Cell Distribution Width 14.5 % (11.8-14.3)
[2023-05-30 06:25] LABS: BUN/Creatinine Ratio 25.7 (10.0-20.0); Bilirubin, Total 0.5 mg/dL (0.2-1.0); Total Protein 7.2 g/dL (6.4-8.2)
[2023-05-30] MEDS: InsuLIN REG 1unit/0.01ml Soln (100units/ml) SC SCH ×4 (06:56→21:09)
[2023-05-30] MEDS: ACCU-CHEK COMFORT CURVE STRIP VI SCH ×4 (06:56→21:07)
[2023-05-30] MEDS: ENOXAPARIN SOD 40 MG/0.4 ML SYRINGE SC SCH (10:26)
[2023-05-30] MEDS: PANTOPRAZOLE 40 MG TAB PO SCH (10:26)
[2023-05-30] MEDS: GEMFIBROZIL 600 MG TAB PO SCH (10:26)
[2023-05-30] MEDS: FLUoxetine HCL 20 MG CAP PO SCH (10:26)
[2023-05-30] MEDS: FUROSEMIDE 40 MG/4 ML VIAL IV SCH (10:27)
[2023-05-30] MEDS: amLODIPine BESYLATE 5 MG TAB PO SCH (10:27)
[2023-05-30] MEDS: TERAZOSIN HCL 5 MG CAP PO SCH (10:27)
[2023-05-30] MEDS: DexAMETHasone SOD PHOS 10MG/1ML VIAL INJ IV SCH (14:07)
[2023-05-30 16:21] LABS: Cholesterol 195 mg/dL (< 200)
[2023-05-30 16:24] LABS: HDL Cholesterol 43 mg/dL (40-59); LDL Cholesterol 112 mg/dL (< 100); Triglycerides 191 mg/dL (< 150)
[2023-05-30] MEDS ORDERED: LORazepam 2MG/ML-1ML VIAL IV ONE (16:45)
[2023-05-31] VITALS (9 sets, daily range): BP systolic 80–138; BP diastolic 32–71; PULSE 55–75; RESP 18–21; TEMP 97.4–98.2; O2SAT 94–96
[2023-05-31] MEDS: ACCU-CHEK COMFORT CURVE STRIP VI SCH ×2 (06:16→11:00)
[2023-05-31] MEDS: InsuLIN REG 1unit/0.01ml Soln (100units/ml) SC SCH ×2 (06:24→11:03)
[2023-05-31 07:09] LABS: Potassium 4.7 mmol/L (3.5-5.1)
[2023-05-31 07:12] LABS: BUN/Creatinine Ratio 25.5 (10.0-20.0); Calcium 8.8 mg/dL (8.5-10.1); Magnesium 2.4 mg/dL (1.6-2.6)
[2023-05-31] MEDS ORDERED: INSULIN LANTUS (GLARGINE) 1 /0.01ml (100units/ml) SC SCH (07:45)
[2023-05-31] MEDS: PANTOPRAZOLE 40 MG TAB PO SCH (08:46)
[2023-05-31] MEDS: ENOXAPARIN SOD 40 MG/0.4 ML SYRINGE SC SCH (08:47)
[2023-05-31] MEDS: GEMFIBROZIL 600 MG TAB PO SCH (08:47)
[2023-05-31] MEDS: DexAMETHasone SOD PHOS 10MG/1ML VIAL INJ IV SCH (08:48)
[2023-05-31] MEDS: FLUoxetine HCL 20 MG CAP PO SCH (08:49)
[2023-05-31] MEDS ORDERED: LORazepam 2MG/ML-1ML VIAL IV ONE (09:00)
[2023-05-31] MEDS: TERAZOSIN HCL 5 MG CAP PO SCH (09:12)
[2023-05-31] MEDS: FUROSEMIDE 40 MG/4 ML VIAL IV SCH (09:12)
[2023-05-31] MEDS: amLODIPine BESYLATE 5 MG TAB PO SCH (10:57)
[2023-05-31] MEDS ORDERED: AML5T PO (15:35)
[2023-05-31] MEDS ORDERED: ATOR20TA50 PO (15:35)
[2023-05-31] MEDS ORDERED: ATORVASTATIN 20 MG TAB PO SCH (22:00)
== END 2023-05-31 17:30 | disposition home or self-care (01) | DRG 140 ==
LOC: ER 09:25 → TELE 16:01 → TELE-WESTW 05-30 15:33
PROVIDERS: ADMIT Internal Medicine Pulmonary Disease; ATTEND Student in an Organized Health Care Education/Training Program
PROC: 5A09357 Assistance with Respiratory Ventilation, Less than 24 Consecutive Hours, Continuous Positive Airway Pressure (ICD-10-PCS; principal; 2023-05-29)
PROC: 5A09357 Assistance with Respiratory Ventilation, Less than 24 Consecutive Hours, Continuous Positive Airway Pressure (ICD-10-PCS; 2023-05-30)
DX: J44.1 Chronic obstructive pulmonary disease with (acute) exacerbation (principal); J96.21 Acute and chronic respiratory failure with hypoxia; I50.43 Acute on chronic combined systolic (congestive) and diastolic (congestive) heart failure; I11.0 Hypertensive heart disease with heart failure; N40.0 Benign prostatic hyperplasia without lower urinary tract symptoms; E11.9 Type 2 diabetes mellitus without complications; F32.A Depression, unspecified; R51.9 Headache, unspecified; E66.01 Morbid (severe) obesity due to excess calories; R55 Syncope and collapse; Z68.43 Body mass index [BMI] 50.0-59.9, adult; Z79.899 Other long term (current) drug therapy; Z80.6 Family history of leukemia; Z87.891 Personal history of nicotine dependence
CPT/HCPCS: 36415; 70450; 70551; 71045; 80048; 80053; 80061; 81001; 82962; 83036; 83735; 83880; 84443; 84484; 85025; 93005; 93306; 94660; 99291; G0378; J1100; J1815

== ENCOUNTER 2025-10-27 02:54 | Inpatient (IN) | payer MEDICARE, MEDICAID ==
[~2025-10-27] VITALS: Ht 177.8 cm; Wt 144.0 kg
[2025-10-27] VITALS (9 sets, daily range): BP systolic 104–139; BP diastolic 70–83; PULSE 67–86; RESP 16–19; TEMP 97.3–98.2; O2SAT 92–94
[~2025-10-27 02:54] MED LIST changes: +AML5T PO; +ATOR20TA50 PO; -AZIT500T66 PO; -GEMF-66 PO; -PRED20TA2 PO
--- NOTE | 2025-10-27 03:41 | ED.PDOC ---
Meron. trauma (HPI) HPI Comments This is a morbidly obese male, with a Hx of CHF, COPD, and HTN, who presents to the ED via EMS with a chief complaint of L hip and L lower extremity pain S/P fall minutes ago. Patient reports slipping from wet, hard tile floor. Patient is unable to ambulate at this time or move the lower extremity. Patient has no fu rther complaints at this time and denies symptoms of LOC, head trauma, dizziness, weakness, or blurred vision. Chief Complaint: Fall Injury Time Seen by MD: 03:14 Primary Care Provider: DONAVON Reviewed notes: Medications, Allergies Allergies: Coded Allergies: NO KNOWN ALLERGIES (Unverified , 03/10/14) Home Meds Active Scripts Atorvastatin Calcium (ATORVASTATIN CALCIUM) 20 Mg Tab, 40 MG PO HS for 30 Days, #30 TAB Prov:ELI HAMLIN MD 05/31/23 Amlodipine Besylate (NORVASC TABLET) 5 Mg Tb, 5 MG PO DAILY for 30 Days, #30 TAB Prov:ELI HAMLIN MD 05/31/23 Oseltamivir Phosphate (Tamiflu) 75 Mg Cap, 75 MG PO BID, #10 CAP Prov:AAMIR URRUTIA MD 09/24/22 Albuterol Sulfate (Ventolin) 2.5 Mg/0.5 Ml Nb, 1 VIAL NEB Q4HR PRN for 30 Days, #60 VIAL 1 Refill Prov:AAMIR URRUTIA MD 09/24/22 Budesonide (Inhalation) (Budesonide) 0.5 Mg/2 Ml Carley, 0.5 MG IN BID for 30 Days, #60 VIAL Prov:AAMIR URRUTIA MD 09/24/22 Hydrocodone-Acetaminophen (Hydrocodone Bitartrate/AC 5-325 mg) 1 Tab Tab, 1 TAB PO [id number] PRN for 5 Days, #10 TAB Prov:JESUS GALINDO DO 01/31/22 Reported Medications Insulin Glargine (Basaglar Kwikpen) 100 Unit/Ml Inj, 20 UNIT SC 09/23/22 Albuterol Sulfate (VENTOLIN MDI) 90 Mcg Ih, 2 PUFF IN PRN 03/11/14 Fluoxetine Hcl (Fluoxetine Hcl) 20 Mg Cap, 20 MG PO DAILY for 30 Days, MG 03/11/14 Terazosin Hcl (Terazosin Hcl) 5 Mg Cap, 5 MG PO DAILY for 30 Days, MG 03/11/14 Glyburide (Glyburide) 5 Mg Tab, 5 MG PO TID for 30 Days, MG 03/11/14 Metformin Hydrochloride (Metformin Hcl) 500 Mg Tab, 500 MG PO BID for 30 Days, MG 03/11/14 Information Source: Patient, Emergency Med Personnel Mode of Arrival: EMS Severity: Moderate Timing: Minutes Duration: Since onset Location: (L) Hip, Other (L femur ) Past Medical History PAST MEDICAL HISTORY: Arthritis, Asthma, CHF, COPD, DM, HTN Surgical History: Denies all surgeries Family History Family History: Reviewed,noncontributory to illness Family History (Other): Noncontributory Social History Smoker: Quit Greater Than 1 Year, Cigarettes Alcohol: Denies ETOH Use Drugs: Denies Drug Use Lives In: Home Constitutional: denies: chills, diaphoresis, fatigue, fever, malaise, sweats, weakness, others EENTM: denies: blurred vision, double vision, ear bleeding, ear discharge, ear drainage, ear pain, ear ringing, eye pain, eye redness, hearing loss, mouth pain, mouth swelling, nasal discharge, nose bleeding, nose congestion, nose pain, photophobia, tearing, throat pain, throat swelling, voice changes, others Respiratory: denies: cough, hemoptysis, orthopnea, SOB at rest, shortness of breath, SOB with excertion, stridor, wheezing, others Cardiovascular: denies: chest pain, dizzy spells, diaphoresis, Dyspnea on exertion, edema, irregular heart beat, left arm pain, lightheadedness, palpitations, PND, syncope, others Gastrointestinal: denies: abdomen distended, abdominal pain, blood streaked bowels, constipated, diarrhea, dysphagia, difficulty swallowing, hematemesis, melena, nausea, poor appetite, poor fluid intake, rectal bleeding, rectal pain, vomiting, others Genitourinary: denies: burning, dysuria, flank pain, frequency, hematuria, incontinence, penile discharge, penile sore, pain, testicle pain, testicle swelling, urgency, others Neurological: denies: dizziness, fainting, headache, left sided numbness, left sided weakness, numbness, paresthesia, pre-existing deficit, right sided numbness, right sided weakness, seizure, speech problems, tingling, tremors, weakness, others Musculoskeletal: reports: joint pain; denies: back pain, gout, joint swelling, muscle pain, muscle stiffness, neck pain, others Integumetry: denies: bruises, change in color, change in hair/nails, dryness, laceration, lesions, lumps, rash, wounds, others Allergic/Immunocompromised: denies: Difficulty Healing, Frequent Infections, Hives, Itching, others Hematologic/Lymphatic: denies: anemia, blood clots, easy bleeding, easy bruising, swollen glands, others Endocrine: denies: excessive hunger, excessive sweating, excessive thirst, excessive urination, flushing, intolerance to cold, intolerance to heat, unexplained weight gain, unexplained weight loss, others Psychiatric: denies: anxiety, bipolar disorder, depression, hopeless, panic disorder, schizophrenia, sleepless, suicidal, others All Other Systems: Reviewed and Negative Physical Exam General Appearance: No Apparent Distress, Obese HEENT: Normal ENT Inspection, Pharynx Normal, TMs Normal Neck: Full Range of Motion, Non-Tender, Normal, Normal Inspection Respiratory: Chest Non-Tender, Lungs Clear, No Accessory Muscle Use, No Respiratory Distress, Normal Breath Sounds Cardiovascular: No Edema, No JVD, No Murmur, No Gallop, Normal Peripheral Pulses, Regular Rate/Rhythm Breast Exam: Deferred Gastrointestinal: No Organomegaly, Non Tender, No Pulsatile Mass, Normal Bowel Sounds, Soft Genitalia: Deferred Pelvic: Deferred Rectal: Deferred Extremities: Normal capillary refill, No pedal edema Musculoskeletal : Location: Left Extremity Location: Femur, Hip Apperance: Tenderness Neurologic: Alert, front office representative II-XII nml as Tested, No Motor Deficits, Normal Affect, Normal Mood, No Sensory Deficits Cerebellar Function: Normal Reflexes: Normal Skin: Dry, Normal Color, Warm Lymphatic: No Adenopathy Was a procedure done? Was a procedure done?: No Differential Diagnosis Multiple Trauma: Closed Head Injury, Fractures, Abrasions, Contusion, Hematoma, Other (dislocation) X-Ray, Labs, Meds, VS Vital Signs Date Time Temp Pulse Resp B/P (MAP) Pulse Ox O2 Delivery O2 Flow Rate FiO2 10/27/25 04:48 108/59 10/27/25 03:16 98.1 71 18 149/74 96 98.1 Lab Test 10/27/25 03:25 Range/Units White Blood Count 18.8 H 4.4-10.8 10^3/uL Red Blood Count 6.20 H 4.5-5.90 10^6/uL Hemoglobin 17.3 13.5-17.5 g/dL Hematocrit 53.8 H 41.0-53.0 % Mean Corpuscular Volume 86.7 80.0-100.0 fL Mean Corpuscular Hemoglobin 27.9 L 28.0-32.0 pg Mean Corpuscular Hemoglobin Concent 32.1 32.0-36.0 g/dL Red Cell Distribution Width 16.1 H 11.8-14.3 % Platelet Count 275 140-450 10^3/uL Mean Platelet Volume 7.9 6.9-10.8 fL Neutrophils (%) (Auto) 82.2 H 37.0-80.0 % Lymphocytes (%) (Auto) 11.0 10.0-50.0 % Monocytes (%) (Auto) 5.8 0.0-12.0 % Eosinophils (%) (Auto) 0.5 0.0-7.0 % Basophils (%) (Auto) 0.5 0.0-2.0 % Neutrophils # (Auto) 15.5 H 1.6-8.6 10 ^3/uL Lymphocytes # (Auto) 2.1 0.4-5.4 10 ^3/uL Monocytes # (Auto) 1.1 0-1.3 10 ^3/uL Eosinophils # (Auto) 0.1 0-0.8 10 ^3/uL Basophils # (Auto) 0.1 0-0.2 10 ^3/uL Nucleated Red Blood Cells 0.0 % Sodium Level 141 136-145 mmol/L Potassium Level 5.0 3.5-5.1 mmol/L Chloride Level 104 98-107 mmol/L Carbon Dioxide Level 28 20-31 mmol/L Anion Gap 9 5-15 Blood Urea Nitrogen 22 9-23 mg/dL Creatinine 1.14 0.700-1.30 mg/dL Glomerular Filtration Rate Calc 71 >90 mL/min BUN/Creatinine Ratio 19.3 10.0-20.0 Serum Glucose 211 H 74-106 mg/dL Calcium Level 9.8 8.7-10.4 mg/dL Current Medications Medications (Trade) Dose Ordered Sig/Gil Route Start Time Stop Time Status Last Admin Fentanyl Citrate 25 mcg ONCE ONCE IV 10/27/25 03:15 10/27/25 03:16 DC 10/27/25 04:[address] [address] Ph: [phone] DIAGNOSTIC IMAGING Diagnostic Imaging Report : [id number] Signed PATIENT: ZENAIDA GARCIA ACCT: [id number] UNIT: [id number] : 1960 LOC: ER ROOM / BED: / AGE / SEX: 64 / M ADM STATUS: REG ER SERVICE 3 ORDERING PHYSICIAN: VAIBHAV ZAIDI MD PROCEDURE(s): LHPCT - CT L HIP WITH OUT CONTRAST REASON: fall ORDER NUMBER(s): [id number], ACCESSION NUMBER(s): [id number] INDICATION: fall COMPARISON: Radiographs dated the same TECHNIQUE: CT of the left hip was performed without contrast. Volume transverse images were obtained and reconstructed in multiple planes using bone and soft tissue algorithms. Radiation Dose Information: CT Dose: CTDI volume is 37 mGy. Dose-length product is 1461 mGy*cm Findings/impression: Redemonstration of complex comminuted intertrochanteric fracture of the proximal femur extending into the proximal femoral diaphysis. Moderate degenerative changes of the left hip joint. All CT scans at this medical facility are performed using dose modulation techniques as appropriate to a performed exam including the following: Automated exposure control was utilized; adjustment of the MA and/or KV according to patient size; and use of iterative reconstruction technique. [address] [address] Ph: [phone] DIAGNOSTIC IMAGING Diagnostic Imaging Report : [id number] Signed PATIENT: ZENAIDA GARCIA ACCT: [id number] UNIT: [id number] : 1960 LOC: ER ROOM / BED: / AGE / SEX: 64 / M ADM STATUS: REG ER SERVICE 3 ORDERING PHYSICIAN: VAIBHAV ZAIDI MD PROCEDURE(s): LFEM - L FEMUR XRAY REASON: fall ORDER NUMBER(s): [id number], ACCESSION NUMBER(s): [id number] CLINICAL INDICATION: fall TECHNIQUE: XY L FEMUR XRAY COMPARISON: None FINDINGS/IMPRESSION: : Significantly displaced partially comminuted subtrochanteric femoral fracture extending into the proximal diaphysis. Soft tissues are unremarkable. X-Ray, Labs, Meds, VS Comment Previous history reviewed: COPD, CHF, Asthma, Arthritis, DM, HTN The following tests were ordered, and results were reviewed by me: CT L Hip W/O contrast, L Femur Xray, CBC, BMP Additional Information was gathered from interviewing the following independent historians: 05/29/23-CHF, 09/23/22-COPD, 02/24/22-CHF I reviewed and agreed with the following test results read by other providers: CT L Hip W/O contrast, L Femur Xray I discussed treatment and results with medical personnel and: Patient Comprehensive systems review obtained and negative except for what is stated in the HPI. Time of 1ST Reevaluation: 04:23 Reevaluation 1ST: Unchanged Patient Education/Counseling: Diagnosis, Treatment Family Education/Counseling: No Family Present Comments This is a patient who is morbidly obese but suffer a mechanical fall on the wet floor. He managed to fracture his left intertrochanteric area. Patient will need to be admitted for surgical repair. He does not have any neurologic deficits or lacerations nor any other injuries. Departure 1 Departure Time of Disposition: 05:17 Impression: Primary Impression: Intertrochanteric fracture of left hip Disposition: ADMITTED INPATIENT Admit to: Med Surg Condition: Serious Discharged With: Self Critical Care Note Critical Care Time?: No Stability Stability form required: No Heart Score Heart Score: Heart Score Response (Comments) Value History N/A 0 EKG N/A 0 Age N/A 0 Risk Factors N/A 0 Troponin N/A 0 Total 0 I personally scribed for VAIBHAV ZAIDI MD ([email or web address]) on 10/27/25 at 03:41. Electronically submitted by Briseida Pastrana ([email or web address]). I personally scribed for VAIBHAV ZAIDI MD ([email or web address]) on 10/27/25 at 03:42. Electronically submitted by Briseida Pastrana ([email or web address]). I personally scribed for VAIBHAV ZAIDI MD ([facility]) on 10/27/25 at 05:12. Electronically submitted by Briseida Pastrana ([email or web address]). VAIBHAV ZAIDI MD Oct 27, 2025 03:41
[2025-10-27 04:16] LABS: Hematocrit 53.8 % (41.0-53.0); Hemoglobin 17.3 g/dL (13.5-17.5); Mean Corpuscular Hemoglobin 27.9 pg (28.0-32.0); Mean Corpuscular Volume 86.7 fL (80.0-100.0); Nucleated Red Blood Cells % 0.0 %
[2025-10-27 04:30] LABS: Anion Gap 9 (5-15); Carbon Dioxide 28 mmol/L (20-31); Chloride 104 mmol/L (98-107); Potassium 5.0 mmol/L (3.5-5.1); Sodium 141 mmol/L (136-145)
[2025-10-27 04:31] LABS: Calcium 9.8 mg/dL (8.7-10.4)
[2025-10-27 04:36] LABS: BUN/Creatinine Ratio 19.3 (10.0-20.0); Blood Urea Nitrogen 22 mg/dL (9-23)
[2025-10-27 04:46] LABS: Glucose 211 mg/dL (74-106)
[2025-10-27] MEDS: fentaNYL CITRATE 100 MCG/2 ML VL IV ONE (04:48)
--- NOTE | 2025-10-27 04:56 | DVH ---
CLINICAL INDICATION: fall TECHNIQUE: XY L FEMUR XRAY COMPARISON: None FINDINGS/IMPRESSION: : Significantly displaced partially comminuted subtrochanteric femoral fracture extending into the proximal diaphysis. Soft tissues are unremarkable.
--- NOTE | 2025-10-27 05:08 | DVH ---
INDICATION: fall COMPARISON: Radiographs dated the same TECHNIQUE: CT of the left hip was performed without contrast. Volume transverse images were obtained and reconstructed in multiple planes using bone and soft tissue algorithms. Radiation Dose Information: CT Dose: CTDI volume is 37 mGy. Dose-length product is 1461 mGy*cm Findings/impression: Redemonstration of complex comminuted intertrochanteric fracture of the proximal femur extending into the proximal femoral diaphysis. Moderate degenerative changes of the left hip joint. All CT scans at this medical facility are performed using dose modulation techniques as appropriate to a performed exam including the following: Automated exposure control was utilized; adjustment of the MA and/or KV according to patient size; and use of iterative reconstruction technique.
[2025-10-27] MEDS: HYDROmorphone HCL 2 MG/ML VL/or syr IV ONE (07:26)
[2025-10-27] MEDS: ONDANSETRON HCL 4 MG/2 ML VIAL IV ONE (07:27)
--- NOTE | 2025-10-27 10:16 | DVH ---
Procedure: XY L HIP 1V XRAY 10/27/2025 09:22 AM Indication: fracture Comparison: CT scan performed the same day FINDINGS/IMPRESSION: Acute comminuted fracture of the left proximal shaft involving the intertrochanteric region. The hip joint is not included in the field of view. The overlying soft tissues unremarkable.
[2025-10-27] MEDS ORDERED: DOCUSATE SOD 100 MG CAP PO PRN (11:45)
[2025-10-27] MEDS ORDERED: ACETAMINOPHEN 325 MG TAB PO PRN (11:45)
[2025-10-27] MEDS ORDERED: INSUINJ37 SC (12:13)
[2025-10-27] MEDS ORDERED: FLUT1AER3 INH (12:13)
[2025-10-27] MEDS ORDERED: SERT-160 PO (12:13)
[2025-10-27] MEDS ORDERED: DEXTROSE (50%) 50ML SYRG IV PRN (12:15)
--- NOTE | 2025-10-27 12:15 | DVHHP2 ---
History of Present Illness Reason for Visit: Fall with injury History of Present Illness Derrick Ayala is a 64-year-old male with past medical history of COPD, sleep apnea, home oxygen use, hypertension, hyperlipidemia, diabetes, asthma, and arthritis, who came to the hospital S/P fall with injury. Patient lives alone and is typically independent. He does have family close by. He states he slipped in his bathroom this morning and fell on his left side. He was not able to walk of get up since the fall due to left hip and leg pain. In ER it was discovered that he has a fracture, orthopedic surgery was consulted as well as cardiology for cardiac clearance. Cardiovascular: HTN, hyperipidemia Pulmonary: Asthma, COPD, Other (Sleep apnea) Endocrine: Diabetes Past Surgical History: None Smoke: No ALCOHOL: none Drugs: None Lives: Alone Domestic Violence: Neg Review of Systems Constitutional: No: Fever, Chills, Sweats, Weakness, Malaise, Other Eyes: No: Pain, Vision change, Conjunctivae inflammation, Eyelid inflammation, Other, Redness ENT: No: Ear pain, Ear discharge, Nose pain, Nose discharge, Nose congestion, Mouth pain, Mouth swelling, Throat pain, Throat swelling, Other Respiratory: No: Cough, Dry, Shortness of breath, SOB with excertion, Wheezing, Hemoptysis, Pleuritic Pain, Sputum, Wheezing, Other Cardiovascular: No: Chest Pain, Palpitations, Orthopnea, Paroxysmal Noc. Dyspnea, Edema, Lt Headedness, Other Gastrointestinal: No: Nausea, Vomiting, Abdominal Pain, Diarrhea, Constipation, Melena, Hematochezia, Other Genitourinary: No Dysuria, No Frequency, No Incontinence, No Hematuria, No Retention, No Other Musculoskeletal: leg pain (left); No: other, neck pain, shoulder pain, arm pain, back pain, hand pain, foot pain Skin: No: Rash, Lesions, Jaundice, Bruising, Other Neurological: No: Weakness, Numbness, Incoordination, Change in speech, Confusion, Seizures, Other Allergies: Coded Allergies: NO KNOWN ALLERGIES (Unverified , 03/10/14) Exam Vital Signs Vital Signs Date Time Temp Pulse Resp B/P (MAP) Pulse Ox O2 Delivery O2 Flow Rate FiO2 10/27/25 10:56 86 15 124/70 (88) 91 10/27/25 08:00 97.3 97.3 10/27/25 08:00 Nasal Cannula* 3 32 General Appearance: Alert, Oriented X3, Cooperative, moderate distress HEENT: Atraumatic, PERRLA, Other (Mucous membr dry) Respiratory: Other (Diminished breath sounds) Cardiovascular: Regular rate, Normal S1, Normal S2, No murmurs Abdominal: Normal bowel sounds, Soft, No tenderness, No hepatospenomegaly Extremities: No clubbing, No cyanosis, Normal pulses, Other (left hip pain and swelling) Skin: No rashes, No breakdown, No significant lesion Neuro: Normal speech, Other (Unable to ambulate) Psych/Mental Status: Mental status NL, Mood NL Labs/Xrays Labs Test 10/27/25 03:25 Range/Units White Blood Count 18.8 H 4.4-10.8 10^3/uL Red Blood Count 6.20 H 4.5-5.90 10^6/uL Hemoglobin 17.3 13.5-17.5 g/dL Hematocrit 53.8 H 41.0-53.0 % Mean Corpuscular Volume 86.7 80.0-100.0 fL Mean Corpuscular Hemoglobin 27.9 L 28.0-32.0 pg Mean Corpuscular Hemoglobin Concent 32.1 32.0-36.0 g/dL Red Cell Distribution Width 16.1 H 11.8-14.3 % Platelet Count 275 140-450 10^3/uL Mean Platelet Volume 7.9 6.9-10.8 fL Neutrophils (%) (Auto) 82.2 H 37.0-80.0 % Lymphocytes (%) (Auto) 11.0 10.0-50.0 % Monocytes (%) (Auto) 5.8 0.0-12.0 % Eosinophils (%) (Auto) 0.5 0.0-7.0 % Basophils (%) (Auto) 0.5 0.0-2.0 % Neutrophils # (Auto) 15.5 H 1.6-8.6 10 ^3/uL Lymphocytes # (Auto) 2.1 0.4-5.4 10 ^3/uL Monocytes # (Auto) 1.1 0-1.3 10 ^3/uL Eosinophils # (Auto) 0.1 0-0.8 10 ^3/uL Basophils # (Auto) 0.1 0-0.2 10 ^3/uL Nucleated Red Blood Cells 0.0 % Sodium Level 141 136-145 mmol/L Potassium Level 5.0 3.5-5.1 mmol/L Chloride Level 104 98-107 mmol/L Carbon Dioxide Level 28 20-31 mmol/L Anion Gap 9 5-15 Blood Urea Nitrogen 22 9-23 mg/dL Creatinine 1.14 0.700-1.30 mg/dL Glomerular Filtration Rate Calc 71 >90 mL/min BUN/Creatinine Ratio 19.3 10.0-20.0 Serum Glucose 211 H 74-106 mg/dL Calcium Level 9.8 8.7-10.4 mg/dL Procedure: XY L HIP 1V XRAY 10/27/2025 09:22 AM Comparison: CT scan performed the same day FINDINGS/IMPRESSION: Acute comminuted fracture of the left proximal shaft involving the intertrochanteric region. The hip joint is not included in the field of view. The overlying soft tissues unremarkable. TECHNIQUE: CT of the left hip was performed without contrast. Findings/impression: Remonstration of complex comminuted intertrochanteric fracture of the proximal femur extending into the proximal femoral diaphysis. Moderate degenerative changes of the left hip joint. TECHNIQUE: XY L FEMUR XRAY COMPARISON: None FINDINGS/IMPRESSION: : Significantly displaced partially comminuted subtrochanteric femoral fracture extending into the proximal diaphysis. Soft tissues are unremarkable. SEPSIS Sepsis Screen Date sepsis recognized/suspect: Oct 27, 2025 Time Sepsis recognized/suspect: 0800 Recent Procedure: No On Antibiotic Therapy: No Respiratory Rate >20: No Heart Rate >90: No Temp<36 C (96.8 F) or >38.3 C: No SBP <90 or MAP <65 mmHG: No New Acute Mental Status Change: No Is the patient on CPAP, BIPAP,: No Physician Orders * Orthopedic Consult (10/27/25 05:23) Type And Screen (10/27/25 09:34) Echo 2d Mode Cardiac Dop (10/27/25 09:34) Npo After Midnight (10/27/25 09:34) Npo (Nothing By Mouth) Diet (10/28/25 Breakfast) Obtain Consent For: (10/27/25 09:34) Obtain Consent For Anesthesia (10/27/25 09:34) Hemoglobin A1c (10/28/25 04:00) L Hip 1v Xray (10/27/25 09:22) Bipap/Cpap For Sleep Apnea (10/27/25 10:31) * Cardiology Consult (10/27/25 10:39) Vital Signs Date Time Temp Pulse Resp B/P (MAP) Pulse Ox O2 Delivery O2 Flow Rate FiO2 10/27/25 10:56 86 15 124/70 (88) 91 10/27/25 08:00 97.3 80 17 100/64 (76) 93 97.3 10/27/25 08:00 80 Nasal Cannula* 3 32 10/27/25 07:26 82 17 109/55 10/27/25 06:00 77 13 108/54 (72) 92 10/27/25 04:48 108/59 10/27/25 04:00 67 16 94 Room Air* 0 21 10/27/25 04:00 73 13 108/59 (75) 94 Laboratory Tests Test 10/27/25 03:25 White Blood Count 18.8 10^3/uL (4.4-10.8) H Medications Medications Dose Ordered Sig/Gil Route Start Time Stop Time Status Last Admin Dose Admin Fentanyl Citrate 25 mcg ONCE ONCE IV 10/27/25 03:15 10/27/25 03:16 DC 10/27/25 04:48 25 MCG Hydromorphone HCl 1 mg ONCE ONCE IV 10/27/25 07:15 10/27/25 07:16 DC 10/27/25 07:26 1 MG Ondansetron HCl 4 mg ONCE ONCE IV 10/27/25 07:15 10/27/25 07:16 DC 10/27/25 07:27 4 MG Assessment/Plan Assessment/Plan Assessment: Intertrochanteric fracture of left hip, COPD, Sleep apnea, Diabetes, Hypertension, Asthma, Arthritis, Plan: Admit to Med-Surg, Orthopedic surgery consult, Cardiology consult, for surgical clearance, NPO, PTPTT, Type and Crossmatch, Chest x-ray, ECHO, A1c, Plan discussed with: Patient, Daughter My Orders Orders - TRUDY MCDOWELLP Procedure Category Date Status Time Bipap/Cpap For Sleep RT 10/27/25 Logged Apnea 10:31 Date of Service: Oct 27, 2025 Billing Provider: TRUDY MCDOWELL Common Visit Codes: 31509-[id number] INP/OBS CARE (HIGH) TRUDY MCDOWELL CHECK PROCESSOR Oct 27, 2025 12:15
[2025-10-27] MEDS: SODIUM CHLORIDE 0.9% 1,000 ML IV SCH (12:45)
[2025-10-27] MEDS: ONDANSETRON HCL 4 MG/2 ML VIAL IV PRN (12:48)
[2025-10-27] MEDS: MORPHINE SULFATE 4 MG/ML SYR/VIAL IV PRN (12:51)
--- NOTE | 2025-10-27 13:10 | DVHINCON2 ---
Consult Note Consult Consult Note Reason for Consult: Left hip fracture after ground-level fall History Mr. Derrick Saleh was seen today after a ground-level fall earlier this morning. X-ray and CT of the left hip were completed and reviewed, demonstrating a left hip intertrochanteric fracture. Past medical history includes DM2, COPD, Sleep Apnea, CKD stage 1 and rheumatoid arthritis followed by Rheumatology. No known cardiac history. Last cardiology evaluation earlier this year. Echocardiogram completed today, pending read. Physical Examination Left Hip Left lower extremity externally rotated Tenderness to palpation over the left groin/hip Pain with attempted movement No open skin lesions No numbness or tingling Distal neurovascular exam grossly intact Assessment Left hip intertrochanteric fracture, acute Mechanical fall Plan / Surgical Counseling Imaging was reviewed with the patient. Operative versus non-operative treatment options were discussed. Given the fracture pattern and patients functional needs, surgical management is recommended. Planned surgical options include left hip open reduction and internal fixation versus hemiarthroplasty versus total hip arthroplasty, with final decision to be made intraoperatively based on fracture configuration and bone quality. Risks, benefits, and alternatives were discussed in detail, including infection, bleeding, nerve or vessel injury, DVT/PE, anesthesia risks, hardware failure, nonunion, need for revision surgery, and medical complications. The patient demonstrated understanding and is amenable to surgery. Orders / Disposition to Bedside Nurse NPO after midnight Await echocardiogram results Medical clearance per primary/Hospital team Surgical consent obtained for left hip operative management by bedside Nurse Plan discussed with: Patient, Other (bedside nurse) Visit Coding Surgery Date of Service if different f: Oct 27, 2025 Billing Provider: VINOD HANSEN Surgery Visit Codes: 56849 - INP CONSULT <55 MIN VINOD HANSEN Oct 27, 2025 13:10
--- NOTE | 2025-10-27 16:48 | DVHSR ---
APPROVED REPORT EXAM: LIMITED Two-dimensional and M-mode echocardiogram with Doppler and color Doppler. Blood Pressure: 100/64 mmHg INDICATION Pre-Op RISK FACTORS Obesity: Height: 5'10", Weight: 300 DIMENSIONS LVDd 5.3 (3.8-5.7cm) LA (2D) (1.9-4.0cm) Aortic Root (2.0-3.7cm) LVDs 3.9 (2.5-4.0cm) LA (MM) (1.9-4.0cm) Aortic Cusp Exc (1.5-2.0cm) EF (%) 55.0 (55-70%) Rt. Atrium (1.9-4.0cm) Asc. Aorta cm IVSd 1.1 (0.7-1.1cm) RV (D) (1.8-2.4cm) PWd 1.1 (0.7-1.1cm) Mitral Valve Mitral Mitral Stenosis E/A ratio 0.0 2D MVA cm2 Aortic Valve Aortic Valve Aortic Stenosis 2D DERRICK 2.76cm2 Pulmonic Valve V2 1.46m/s Tricuspid Valve TR Velocity 2.80m/s RVSP 34mmHg Other Information Quality : Technically Limited Rhythm : Technically limited study due to body habitus, patient laying flat due to broken leg. Conclusion Technically limited study secondary to poor acoustic windows. Left ventricle: Mild Concentric left ventricular hypertrophy was seen. LVEF was around 55%. Right ventricle was normal size with normal systolic function. Mild right ventricular hypertrophy was seen. Atria were not well-visualized Aortic valve: Aortic valve was trileaflet. There was no aortic insufficiency/stenosis. Mild mitral/tricuspid regurgitation was observed. Pulmonary valve was not well visualized Right ventricular systolic pressure was assessed normal at 35 mm Hg. There was no pericardial effusion.
[2025-10-27] MEDS: ACCU-CHEK COMFORT CURVE STRIP VI SCH (18:00)
[2025-10-27] MEDS: InsuLIN REG 1unit/0.01ml Soln (100units/ml) SC SCH (18:00)
--- NOTE | 2025-10-27 18:00 | DVHINCON2 ---
Date of service: Oct 27, 2025 History of Present Illness HPI Patient is a 64-year-old morbidly obese gentleman who presented to the hospital after mechanical fall. He was in bathroom and slipped over with heart floor and could not get up after that. He was brought to the hospital and is found to have left hip fracture. Patient is seen by Orthopedics who requested cardiology clearance/risk stratification prior to orthopedic surgery. Patient is known to our practice from outside and before. Does have history of diastolic heart failure and morbid obesity. No recent chest pain/shortness of breath. Has been compliant with medication and followups. Home Meds Active Scripts Atorvastatin Calcium (ATORVASTATIN CALCIUM) 20 Mg Tab, 40 MG PO HS for 30 Days, #30 TAB Prov:ELI HAMLIN MD 05/31/23 Albuterol Sulfate (Ventolin) 2.5 Mg/0.5 Ml Nb, 1 VIAL NEB Q4HR PRN for 30 Days, #60 VIAL 1 Refill Prov:AAMIR URRUTIA MD 09/24/22 Budesonide (Inhalation) (Budesonide) 0.5 Mg/2 Ml Carley, 0.5 MG IN BID for 30 Days, #60 VIAL Prov:AAMIR URRUTIA MD 09/24/22 Reported Medications Cvyhrczqvok-Qzqymkuvmcpe-Fmmwo (Trelegy Ellipta 100-62.5-25 Mcg/INH) 1 Aer Aer, 1 PUFF INH DAILY 10/27/25 Sertraline Hcl (Sertraline Hcl) 100 Mg Tab, 1 TAB PO DAILY 10/27/25 Insulin Glargine (Lantus Solostar) 100 Unit/Ml Inj, 50 UNITS SC HS 10/27/25 Albuterol Sulfate (VENTOLIN MDI) 90 Mcg Ih, 2 PUFF IN PRN 03/11/14 Terazosin Hcl (Terazosin Hcl) 5 Mg Cap, 5 MG PO DAILY for 30 Days, MG 03/11/14 Discontinued Reported Medications Insulin Glargine (Basaglar Kwikpen) 100 Unit/Ml Inj, 20 UNIT SC 09/23/22 Fluoxetine Hcl (Fluoxetine Hcl) 20 Mg Cap, 20 MG PO DAILY for 30 Days, MG 03/11/14 Glyburide (Glyburide) 5 Mg Tab, 5 MG PO TID for 30 Days, MG 03/11/14 Metformin Hydrochloride (Metformin Hcl) 500 Mg Tab, 500 MG PO BID for 30 Days, MG 03/11/14 Discontinued Scripts Amlodipine Besylate (NORVASC TABLET) 5 Mg Tb, 5 MG PO DAILY for 30 Days, #30 TAB Prov:ELI HAMLIN MD 05/31/23 Oseltamivir Phosphate (Tamiflu) 75 Mg Cap, 75 MG PO BID, #10 CAP Prov:AAMIR URRUTIA MD 09/24/22 Hydrocodone-Acetaminophen (Hydrocodone Bitartrate/AC 5-325 mg) 1 Tab Tab, 1 TAB PO [id number] PRN for 5 Days, #10 TAB Prov:JESUS GALINDO DO 01/31/22 Past Medical History Others Past medical history includes COPD (on home oxygen), history of carpal tunnel disease, diastolic heart failure, degenerative disc disease, CKD, rheumatoid arthritis, diabetes mellitus, hypertension, hypertriglyceridemia, BPH, obstructive sleep apnea on CPAP, morbidly obese, depression and BPH. Family History: No pertinent Hx Patient Family History: FH: dementia G8 MOTHER FH: lung cancer G8 MOTHER FHx: leukemia G8 FATHER Smoker: Quit Alocohol: None Drugs: None Lives with: With family Review of Systems Constitutional: No symptom reported Ears, Nose, & Throat: No symptom reported Eyes: No symptom reported Pulmonary/Respiratory: No symptom reported Cardiovascular: No symptom reported All Other Systems 14 point review of system was performed. Relevant findings as per above and as per HPI. Otherwise negative. H&P Exam Vital Signs Vital Signs Date Time Temp Pulse Resp B/P (MAP) Pulse Ox O2 Delivery O2 Flow Rate FiO2 10/27/25 16:00 77 22 130/71 (90) 90 10/27/25 14:54 Facial BiPAP Mask 30 10/27/25 12:00 98.0 98.0 10/27/25 11:50 3 Labs/Xrays Labs Test 10/27/25 03:25 Range/Units White Blood Count 18.8 H 4.4-10.8 10^3/uL Red Blood Count 6.20 H 4.5-5.90 10^6/uL Hemoglobin 17.3 13.5-17.5 g/dL Hematocrit 53.8 H 41.0-53.0 % Mean Corpuscular Volume 86.7 80.0-100.0 fL Mean Corpuscular Hemoglobin 27.9 L 28.0-32.0 pg Mean Corpuscular Hemoglobin Concent 32.1 32.0-36.0 g/dL Red Cell Distribution Width 16.1 H 11.8-14.3 % Platelet Count 275 140-450 10^3/uL Mean Platelet Volume 7.9 6.9-10.8 fL Neutrophils (%) (Auto) 82.2 H 37.0-80.0 % Lymphocytes (%) (Auto) 11.0 10.0-50.0 % Monocytes (%) (Auto) 5.8 0.0-12.0 % Eosinophils (%) (Auto) 0.5 0.0-7.0 % Basophils (%) (Auto) 0.5 0.0-2.0 % Neutrophils # (Auto) 15.5 H 1.6-8.6 10 ^3/uL Lymphocytes # (Auto) 2.1 0.4-5.4 10 ^3/uL Monocytes # (Auto) 1.1 0-1.3 10 ^3/uL Eosinophils # (Auto) 0.1 0-0.8 10 ^3/uL Basophils # (Auto) 0.1 0-0.2 10 ^3/uL Nucleated Red Blood Cells 0.0 % Sodium Level 141 136-145 mmol/L Potassium Level 5.0 3.5-5.1 mmol/L Chloride Level 104 98-107 mmol/L Carbon Dioxide Level 28 20-31 mmol/L Anion Gap 9 5-15 Blood Urea Nitrogen 22 9-23 mg/dL Creatinine 1.14 0.700-1.30 mg/dL Glomerular Filtration Rate Calc 71 >90 mL/min BUN/Creatinine Ratio 19.3 10.0-20.0 Serum Glucose 211 H 74-106 mg/dL Hemoglobin A1c 7.6 H <5.7 % A1C Calcium Level 9.8 8.7-10.4 mg/dL Assessment/Plan Plan Patient is a 64-year-old morbidly obese gentleman who presented to the hospital after mechanical fall. He was in bathroom and slipped over with heart floor and could not get up after that. He was brought to the hospital and is found to have left hip fracture. Patient is seen by Orthopedics who requested cardiology clearance/risk stratification prior to orthopedic surgery. Patient is known to our practice from outside and before. Does have history of diastolic heart failure and morbid obesity. No recent chest pain/shortness of breath. Has been compliant with medication and followups. Morbidly obese gentleman, lying flat in bed. On BiPAP no goiter, no carotid bruit, pink and wet mucosa. Chest: Scattered rhonchi and wheezing is heard. No crackles. Cardiac: Irregular regular, distant sounds. No thrill/gallop. Abdomen: Obese, nontender. No hepatomegaly. No gross mass. Limited mobility of left lower extremity. Past medical history includes COPD (on home oxygen), history of carpal tunnel disease, diastolic heart failure, degenerative disc disease, CKD, rheumatoid arthritis, diabetes mellitus, hypertension, hypertriglyceridemia, BPH, obstructive sleep apnea on CPAP, morbidly obese, depression and BPH. Echocardiogram of 2013 revealed probably normal EF Echocardiogram of February 02, 2022 revealed ejection fraction of 54%, mild dilatation of right ventricle with normal systolic function and no valvular disease. Echocardiogram of May 29, 2023 had reported ejection fraction of 50% and no severe valvular disease Echocardiogram of September 16, 2024 reported ejection fraction 50-55%, mild left atrial enlargement, trace MR/TR and right ventricular systolic pressure of less than 35 mm Hg Nuclear stress test of September 20, 2023 (performed in the office) reported no gross ischemia/scar, ejection fraction of 50% WBC: 18.8 Creatinine: 1.14 Potassium: 5.0 Femur x-ray reported: Significantly displaced partially comminuted subtrochanteric femoral fracture extending into the proximal diaphysis. Soft tissues are unremarkable. Hip x-ray reported: Acute comminuted fracture of the left proximal shaft involving the intertrochanteric region. The hip joint is not included in the field of view. The overlying soft tissues unremarkable. CT of the left hip reported: Redemonstration of complex comminuted intertrochanteric fracture of the proximal femur extending into the proximal femoral diaphysis. Moderate degenerative changes of the left hip joint. EKG revealed: NSR, no specific ST T changes Tele reveals sinus rhythm Echocardiogram revealed: Technically limited study secondary to poor acoustic windows. Left ventricle: Mild Concentric left ventricular hypertrophy was seen. LVEF was around 55%. Right ventricle was normal size with normal systolic function. Mild right ventricular hypertrophy was seen. Atria were not well- visualized. Aortic valve: Aortic valve was trileaflet. There was no aortic insufficiency/stenosis. Mild mitral/tricuspid regurgitation was observed. Pulmonary valve was not well visualized. Right ventricular systolic pressure was assessed normal at 35 mm Hg. There was no pericardial effusion. Patient is a 64-year-old gentleman who presented with post mechanical fall and left hip fracture. Patient is to go for orthopedic surgery and Orthopedic requested for risk stratification prior to surgery. Patient does have history of morbid obesity/diastolic heart failure/COPD (on home oxygen)/diabetes mellitus/rheumatoid arthritis. Echocardiogram was unrevealing of any significant valvular disease and reported preserved left ventricular systolic function. We do have a nuclear stress test of September 2023 which did not reveal any ischemia. Status post mechanical fall Hip fracture Diastolic heart failure, compensated Chronic respiratory failure Morbid obesity Diabetes Hypertension Cardiac suggestion for management: Manage on telemetry bed Follow-up electrolytes and kidney function tests and correct abnormalities Cardiac-nicolas, the patient is considered moderate risk patient for moderate risk orthopedic/hip surgery. Cardiac-nicolas, you can proceed with orthopedic/hip surgery under appropriate intra and postoperative hemodynamic monitoring. Avoid hypotension. Request for chest x-ray Evaluation and management of hip fracture as per Orthopedics DVT prophylaxis as per primary team Thank you for consultation Further evaluation and management depends on the above and clinical course A total of 75 minutes was spent reviewing the patient record, examining the patient, making a diagnostic and therapeutic plan, discussing this plan with medical personnel, following up on diagnostic studies and following the patient for clinical stability excluding any and all procedures. At least 50% of this time was spent in direct, [id number] contact. Thank you for allowing me to participate in this patient's care. Further recommendations will depend on patient's clinical course. Please do not hesitate to contact me if you have any questions or concerns. This medical document was created using electronic medical record system with [employer] computerized dictation system. Although this document has been carefully reviewed, there may still be some phonetic and typographical errors. These areas are purely typographical due to the imperfection of the software programs, and do not reflect any compromise in the patient's medical care. Plan discussed with: Patient, Other (nurse) ABDIRIZAK REDMOND MD Oct 27, 2025 18:00
--- NOTE | 2025-10-27 18:45 | DVH ---
CHEST RADIOGRAPH INDICATION: SURGERY CLEARANCE TECHNIQUE: XY CHEST XRAY 1 VIEW COMPARISON: None FINDINGS: The cardiac silhouette is enlarged. The lungs demonstrate bilateral patchy airspace opacities. The pulmonary vasculature is prominent. Small bilateral pleural effusions, [id number]-right. There is no pneumothorax. IMPRESSION: Cardiomegaly with pulmonary vascular congestion and bilateral patchy airspace opacities. Small bilateral pleural effusions, [id number]-right.
[2025-10-27] MEDS: HYDROcodone-ACET 5/325MG TAB PO PRN (19:55)
[2025-10-27 19:58] LABS: Urine Budding Yeast OCCASIONAL /hpf (None Seen); Urine Protein, UAD TRACE (Negative)
[2025-10-27] MEDS: INSULIN LANTUS (GLARGINE) 1 /0.01ml (100units/ml) SC SCH (22:00)
[2025-10-27] MEDS: ATORVASTATIN 20 MG TAB PO SCH (22:07)
[2025-10-28] VITALS (12 sets, daily range): BP systolic 91–146; BP diastolic 53–93; PULSE 65–89; RESP 17–95; TEMP 97.6–98.7; O2SAT 2–97
[2025-10-28] MEDS: KETOROLAC TROMETH 30 MG/ML 1ML VIAL IV ONE (00:31)
[2025-10-28 06:23] LABS: Hematocrit 47.6 % (41.0-53.0); Hemoglobin 15.7 g/dL (13.5-17.5); Mean Corpuscular Hemoglobin 28.5 pg (28.0-32.0); Mean Corpuscular Volume 86.6 fL (80.0-100.0); Nucleated Red Blood Cells % 0.1 %
[2025-10-28] MEDS: BUPIVACAINE 0.25% INJ 50ML VIAL ONE (06:47)
[2025-10-28] MEDS: BUPIVACAINE HCL 50 ML ONE (06:47)
[2025-10-28] MEDS ORDERED: PROPOFOL 10 MG/ML 20 ML IV ONE ×6 (06:54→10:21)
[2025-10-28] MEDS ORDERED: GLYCOPYRROLATE 0.2 MG/ML 1ML VIAL ONE (06:54)
[2025-10-28] MEDS ORDERED: ONDANSETRON HCL 4 MG/2 ML VIAL ONE (06:54)
[2025-10-28] MEDS ORDERED: LIDOCAINE 1% INJ PF 5ML AMP ONE (06:55)
[2025-10-28 06:58] LABS: Alanine Aminotransferase 35 U/L (7-40); Albumin 3.8 g/dL (3.2-4.8); Alkaline Phosphatase 72 U/L (46-116); Anion Gap 10 (5-15); BUN/Creatinine Ratio 21.0 (10.0-20.0); Blood Urea Nitrogen 21 mg/dL (9-23); Calcium 8.9 mg/dL (8.7-10.4); Carbon Dioxide 28 mmol/L (20-31); Chloride 103 mmol/L (98-107); Potassium 4.6 mmol/L (3.5-5.1); Sodium 141 mmol/L (136-145); Total Protein 6.7 g/dL (5.7-8.2)
[2025-10-28] MEDS: GABAPENTIN 400 MG CAP PO ONE (07:00)
[2025-10-28] MEDS: CELECOXIB 100 MG CAP PO ONE (07:00)
[2025-10-28] MEDS: ACETAMINOPHEN IV 1000 MG/100ML (10MG/ML) IV ONE (07:00)
[2025-10-28] MEDS ORDERED: KETAMINE 50mg/ML 1ml syringe ONE (07:01)
[2025-10-28 07:03] LABS: Bilirubin, Total 1.5 mg/dL (0.2-1.0); Glucose 135 mg/dL (74-106)
[2025-10-28] MEDS ORDERED: BUPIVACAINE/DEXTROSE MPF 0.75% 2 ML AMP IT ONE (07:22)
[2025-10-28] MEDS ORDERED: ceFAZolin 1GM VL ONE (07:37)
[2025-10-28] MEDS: ceFAZolin 2 GM/D5W50ml 50 ML IV ONE (07:40)
[2025-10-28] MEDS ORDERED: LIDOCAINE HCL 2% TOP JELLY 5ML TOP ONE (07:51)
[2025-10-28] MEDS ORDERED: SODIUM CHLORIDE LOCK 10 ML ONE (07:53)
[2025-10-28] MEDS ORDERED: PHENYLEPHRINE HCL 10 MG/ML VL ONE (07:53)
[2025-10-28] MEDS: TRANEXAMIC ACID 20 ML ONE (08:20)
--- NOTE | 2025-10-28 08:46 | DVHPN2 ---
Progress Note - Dictate Date Seen: Oct 28, 2025 Medical Necessity Reason Pt with a Central, PICC or Fol: No vital signs Vital Sign Date Time Temp Pulse Resp B/P (MAP) Pulse Ox O2 Delivery O2 Flow Rate FiO2 10/28/25 05:00 97.6 65 17 118/74 (89) 95 97.6 10/28/25 02:04 Facial BiPAP Mask 30 10/27/25 22:48 2 Total Intake and Output 10/27/25 10/27/25 10/28/25 15:00 23:00 07:00 Intake Total 225 ml 100 ml Balance 225 ml 100 ml medications Current Medications Medications Dose Ordered Sig/Gil Route Start Time Stop Time Status Last Admin Dose Admin Sodium Chloride 1,000 ml @ 75 mls/hr [id number] IV 10/27/25 11:45 10/27/25 12:45 75 MLS/HR Acetaminophen/ Hydrocodone Bitart 1 tab Q4HP PRN PO 10/27/25 11:45 10/27/25 19:55 1 TAB Ondansetron HCl 4 mg Q4HP PRN IV 10/27/25 11:45 10/27/25 20:18 4 MG Docusate Sodium 100 mg BIDPRN PRN PO 10/27/25 11:45 Acetaminophen 650 mg Q6HP PRN PO 10/27/25 11:45 Morphine Sulfate 2 mg Q4HPRN PRN IV 10/27/25 12:00 10/27/25 20:15 2 MG Atorvastatin Calcium 40 mg HS PO 10/27/25 22:00 10/27/25 22:07 40 MG Terazosin HCl 5 mg DAILY PO 10/28/25 10:00 Diagnostic Test (Pha) 1 strip Q6HR 10/27/25 18:00 10/28/25 05:30 1 STRIP Insulin Human Regular Q6HR SC 10/27/25 18:00 10/28/25 05:32 2 UNITS Dextrose 50 ml UD PRN IV 10/27/25 12:15 Patient Own Medication 1 puff DAILY PO 10/28/25 10:00 Insulin Glargine 50 units HS SC 10/27/25 22:00 Sertraline HCl 100 mg DAILY PO 10/28/25 10:00 laboratory and microbiology Laboratory Tests 10/28/25 04:56 Test 10/28/25 04:56 Range/Units Serum Glucose 135 H 74-106 mg/dL Assessment/Plan Patient is a 64-year-old morbidly obese gentleman who presented to the hospital after mechanical fall. He was in bathroom and slipped over with heart floor and could not get up after that. He was brought to the hospital and is found to have left hip fracture. Patient is seen by Orthopedics who requested cardiology clearance/risk stratification prior to orthopedic surgery. Patient is known to our practice from outside and before. Does have history of diastolic heart failure and morbid obesity. No recent chest pain/shortness of breath. Has been compliant with medication and followups. Morbidly obese gentleman, lying flat in bed. On BiPAP no goiter, no carotid bruit, pink and wet mucosa. Chest: Scattered rhonchi and wheezing is heard. No crackles. Cardiac: Irregular regular, distant sounds. No thrill/gallop. Abdomen: Obese, nontender. No hepatomegaly. No gross mass. Limited mobility of left lower extremity. Past medical history includes COPD (on home oxygen), history of carpal tunnel disease, diastolic heart failure, degenerative disc disease, CKD, rheumatoid arthritis, diabetes mellitus, hypertension, hypertriglyceridemia, BPH, obstructive sleep apnea on CPAP, morbidly obese, depression and BPH. Echocardiogram of 2013 revealed probably normal EF Echocardiogram of February 02, 2022 revealed ejection fraction of 54%, mild dilatation of right ventricle with normal systolic function and no valvular disease. Echocardiogram of May 29, 2023 had reported ejection fraction of 50% and no severe valvular disease Echocardiogram of September 16, 2024 reported ejection fraction 50-55%, mild left atrial enlargement, trace MR/TR and right ventricular systolic pressure of less than 35 mm Hg Nuclear stress test of September 20, 2023 (performed in the office) reported no gross ischemia/scar, ejection fraction of 50% WBC: 18.8 - 8.3 Creatinine: 1.14 - 1.00 Potassium: 5.0 - 4.6 Femur x-ray reported: Significantly displaced partially comminuted subtrochanteric femoral fracture extending into the proximal diaphysis. Soft tissues are unremarkable. Hip x-ray reported: Acute comminuted fracture of the left proximal shaft involving the intertrochanteric region. The hip joint is not included in the field of view. The overlying soft tissues unremarkable. CT of the left hip reported: Redemonstration of complex comminuted intertrochanteric fracture of the proximal femur extending into the proximal femoral diaphysis. Moderate degenerative changes of the left hip joint. Chest xry revealed: IMPRESSION: Cardiomegaly with pulmonary vascular congestion and bilateral patchy airspace opacities. Small bilateral pleural effusions, [id number]-right. EKG revealed: NSR, no specific ST T changes Tele reveals sinus rhythm Echocardiogram revealed: Technically limited study secondary to poor acoustic windows. Left ventricle: Mild Concentric left ventricular hypertrophy was seen. LVEF was around 55%. Right ventricle was normal size with normal systolic function. Mild right ventricular hypertrophy was seen. Atria were not well- visualized. Aortic valve: Aortic valve was trileaflet. There was no aortic insufficiency/stenosis. Mild mitral/tricuspid regurgitation was observed. Pulmonary valve was not well visualized. Right ventricular systolic pressure was assessed normal at 35 mm Hg. There was no pericardial effusion. Patient is a 64-year-old gentleman who presented with post mechanical fall and left hip fracture. Patient is to go for orthopedic surgery and Orthopedic requested for risk stratification prior to surgery. Patient does have history of morbid obesity/diastolic heart failure/COPD (on home oxygen)/diabetes mellitus/rheumatoid arthritis. Echocardiogram was unrevealing of any significant valvular disease and reported preserved left ventricular systolic function. We do have a nuclear stress test of September 2023 which did not reveal any ischemia. Status post mechanical fall Hip fracture Diastolic heart failure, compensated Chronic respiratory failure Morbid obesity Diabetes Hypertension Cardiac suggestion for management: Manage on telemetry bed Follow-up electrolytes and kidney function tests and correct abnormalities Cardiac-nicolas, the patient is considered moderate risk patient for moderate risk orthopedic/hip surgery. Cardiac-nicolas, you can proceed with orthopedic/hip surgery under appropriate intra and postoperative hemodynamic monitoring. Avoid hypotension. Evaluation and management of hip fracture as per Orthopedics DVT prophylaxis as per primary team Further evaluation and management depends on the above and clinical course A total of 55 minutes was spent reviewing the patient record, examining the patient, making a diagnostic and therapeutic plan, discussing this plan with medical personnel, following up on diagnostic studies and following the patient for clinical stability excluding any and all procedures. At least 50% of this time was spent in direct, [id number] contact. Thank you for allowing me to participate in this patient's care. Further recommendations will depend on patient's clinical course. Please do not hesitate to contact me if you have any questions or concerns. This medical document was created using electronic medical record system with [employer] computerized dictation system. Although this document has been carefully reviewed, there may still be some phonetic and typographical errors. These areas are purely typographical due to the imperfection of the software programs, and do not reflect any compromise in the patient's medical care. Plan discussed with: Patient, Other (nurse) ABDIRIZAK REDMOND MD Oct 28, 2025 08:46
[2025-10-28] MEDS: TERAZOSIN HCL 5 MG CAP PO SCH (10:00)
--- NOTE | 2025-10-28 10:55 | DVHOP2 ---
Operative Report - 2 Report Details Date: 10/28/25 Preop Diagnosis: leftproximal femur displaced comminuted intertrochanteric/subtrochanteric fracture Morbid obesity with BMI greater than 50 Postop Diagnosis: Same Surgeon: Rboy Guillermo MD Anesthesiologist: Mumtaz Douglas CRNA Anesthesia: Regional Drains: Marcial closed wound suction Implant: Evan cephalomedullary nail, hip screw, distal locking screw, cerclage implant Consent: The patient was informed of the risks and benefits of the procedure. These include but are not limited to complications of anesthesia, postoperative infection, incomplete relief of symptoms, recurrence of symptoms, damage to blood vessels, nerves and tendons, deep venous thrombosis, pulmonary embolism and possible need for repeat surgery in the future. Complications: None Estimated Blood Loss: 350 cc Fluids: See anesthesia record Findings: Left proximal femur comminuted displaced intertrochanteric/subtrochanteric fracture, Indications for Surgery: Unstable hip fracture Name of Procedure Performed Open reduction internal fixation left proximal femur subtrochanteric Open reduction cephalomedullary nail left intertrochanteric fracture C-arm fluoroscopy Increased complexity due to morbid obesity with OR time taking 3 times normal. Procedure Details Procedure Details: Patient was brought to the operating room and given spinal anesthetic with adequate analgesia obtained. Preop patient received IV Ancef. He was positioned on the [place] table with the left lower extremity in boot traction in the right lower extremity in the well leg garcia. Surgical time-out was performed verifying patient, laterality and procedure. Closed reduction maneuver was performed. C-arm was brought in and I determined that I would not be able to achieve closed reduction so plan for open reduction. The left hip and thigh were prepped and draped in sterile fashion. A incision was made at the lateral proximal thigh for approximately 35% the length of the femur. Subcutaneous dissection and hemostasis performed with Bovie. I identified the fascia which was incised and retractors applied. I then incised the vastus la teralis muscle to expose the fracture. Retractors were adjusted. I then used a bone reduction forceps and manipulation with the fracture table to reduce the subtrochanteric component. I then brought my attention to the intertrochanteric fracture. I made a more proximal incision and incised the fascia. I then passed a guidewire down the proximal femur and adjusted position based on AP and lateral views with C-arm. I used soft tissue protector and reamed over the guidewire then the soft tissue protector and guidewire removed. I then passed a long beaded guidewire using C-arm to verify passage into the distal fragment. I measured for length with the depth gauge. I then reamed sequentially to 11 mm diameter where I had chatter. At this point I decided to cerclage the subtrochanteric fracture so I could remove the reduction forceps and allow the placement of the hip screw. I used a wire Passer and then passed the cerclage through the Passer and cinched it down with the locking device and tightened it to 200 lb pressure. I was then able to remove the reduction forceps. I then passed the cephalomedullary nail over the guidewire until appropriate depth was reached based on C-arm guidance. I then worked to manipulate the intertrochanteric fracture into better reduction using reduction forceps. I was not able to get a complete anatomic reduction decided that it was adequate based on the circumstances. I passed the hip screw cannula to bone and while holding the reduction with forceps I passed a guidewire in the proximal femoral neck and head and adjusted the position based on C-arm guidance. I then reamed over the guidewire and used the tap. Length was measured off of the cannula. I passed the 105 mm hip screw with good bite achieved. Traction was verified released. I then used a compression device to compress the fracture. I then locked it proximally and turned back a quarter turn to allow sliding of the hip screw. C- arm was brought in to verify acceptable reduction. I then brought my attention to the distal femur for the distal locking placement. I achieved round holes with the C-arm. I used the C-arm to guide skin incision and to guide placement of the drill I drilled across the fracture and through the radha and hand this was verified with C-arm. I used a depth gauge then passed a 48 mm distal locking screw with good bite achieved. I then performed C-arm views AP and lateral throughout the length of the femur verifying reduction and hardware placement. I irrigated the wounds copiously with normal saline bulb syringe. Fascial tissue was closed with 1. Ethibond. Deep subcu was closed with 0 Vicryl. Superficial subQ was closed with 2-0 Vicryl. Skin was closed with dany and wounds dressed sterilely. There was greatly increased complexity with this fracture and due to the patient's morbid obesity obesity this surgery took 3 times the normal length of time. Which was 2-1/2 hours. Patient tolerated the procedure well was brought to recovery room in stable condition. Condition Stable Disposition Still a Patient ROBY GUILLERMO MD Oct 28, 2025 10:55
[2025-10-28] MEDS ORDERED: ONDANSETRON HCL 4 MG/2 ML VIAL IV PRN (11:15)
[2025-10-28] MEDS ORDERED: FLUMAZENIL 0.1 MG/ML INJ 10ML MDV IV PRN (11:15)
[2025-10-28] MEDS ORDERED: fentaNYL CITRATE 100 MCG/2 ML VL IV PRN (11:15)
[2025-10-28] MEDS ORDERED: hydrALAZINE HCL 20 MG/ML VL IV PRN (11:15)
[2025-10-28] MEDS ORDERED: HYDROmorphone HCL 2 MG/ML VL/or syr IV PRN (11:15)
[2025-10-28] MEDS ORDERED: NALOXONE HCL 0.4 MG/ML VIAL IV PRN (11:15)
--- NOTE | 2025-10-28 11:33 | DVH ---
C-ARM FLUOROSCOPY: PROCEDURE: orif left hip FLUOROSCOPY TIME: 103.2 sec DAP: 26 mgy FINDINGS: Spot intraoperative C arm radiographs demonstrating orif left hip. IMPRESSION: Please refer to surgical report for detailed findings.
[2025-10-28] MEDS: LACTATED RINGER'S 1,000 ML IV SCH (12:18)
[2025-10-28] MEDS: SERTRALINE HCL 50 MG TAB PO SCH (12:26)
--- NOTE | 2025-10-28 13:34 | DVHPN2 ---
Reviewed: Care Plan, H&P, Labs, Medications, Previous Orders, Radiology Changes from previous H/P or p: No Changes Eyes: No Pain, No Vision change, No Conjunctivae inflammation, No Eyelid inflammation, No Other, No Redness ENT: No Ear pain, No Ear discharge, No Nose pain, No Nose discharge, No Nose congestion, No Mouth pain, No Mouth swelling, No Throat pain, No Throat swelling, No Other Cardiovascular: No Chest Pain, No Palpitations, No Orthopnea, No Paroxysmal Noc. Dyspnea, No Edema, No Lt Headedness, No Other Respiratory: No Cough, No Dry, No Shortness of breath, No SOB with excertion, No Wheezing, No Hemoptysis, No Pleuritic Pain, No Sputum, No Other Gastrointestinal: No Nausea, No Vomiting, No Abdominal Pain, No Diarrhea, No Constipation, No Melena, No Hematochezia, No Other Genitourinary: No Dysuria, No Frequency, No Incontinence, No Hematuria, No Retention, No Other Musculoskeletal: No other, No neck pain, No shoulder pain, No arm pain, No back pain, No hand pain; leg pain (left); No foot pain Skin: No Rash, No Lesions, No Jaundice, No Bruising, No Other Objective Vitals Vital Signs Date Time Temp Pulse Resp B/P (MAP) Pulse Ox O2 Delivery O2 Flow Rate FiO2 10/28/25 11:55 72 14 104/59 (74) 94 10/28/25 11:17 Nasal Cannula 5.0 10/28/25 11:17 97 10/28/25 11:02 97.6 97.6 Intake/Output Intake and Output 10/28/25 07:00 Intake Total 325 ml Balance 325 ml Intake Oral 0 ml IV Total 325 ml Medications Current Medications Medications Dose Ordered Sig/Gil Route Start Time Stop Time Status Last Admin Dose Admin Sodium Chloride 1,000 ml @ 75 mls/hr [id number] IV 10/27/25 11:45 10/27/25 12:45 75 MLS/HR Acetaminophen/ Hydrocodone Bitart 1 tab Q4HP PRN PO 10/27/25 11:45 10/27/25 19:55 1 TAB Ondansetron HCl 4 mg Q4HP PRN IV 10/27/25 11:45 10/27/25 20:18 4 MG Docusate Sodium 100 mg BIDPRN PRN PO 10/27/25 11:45 Acetaminophen 650 mg Q6HP PRN PO 10/27/25 11:45 Morphine Sulfate 2 mg Q4HPRN PRN IV 10/27/25 12:00 10/27/25 20:15 2 MG Atorvastatin Calcium 40 mg HS PO 10/27/25 22:00 10/27/25 22:07 40 MG Terazosin HCl 5 mg DAILY PO 10/28/25 10:00 Diagnostic Test (Pha) 1 strip Q6HR 10/27/25 18:00 10/28/25 12:10 1 STRIP Insulin Human Regular Q6HR SC 10/27/25 18:00 10/28/25 12:15 2 UNITS Dextrose 50 ml UD PRN IV 10/27/25 12:15 Patient Own Medication 1 puff DAILY PO 10/28/25 10:00 Insulin Glargine 50 units HS SC 10/27/25 22:00 Sertraline HCl 100 mg DAILY PO 10/28/25 10:00 10/28/25 12:26 100 MG Lactated Ringer's 1,000 ml @ 100 mls/hr Q10H IV 10/28/25 11:00 10/28/25 12:18 100 MLS/HR Sodium Chloride 10 ml Q8HR IV 10/28/25 14:00 Enoxaparin Sodium 40 mg DAILY SC 10/29/25 10:00 Acetaminophen/ Hydrocodone Bitart 1 tab Q4HP PRN PO 10/28/25 11:00 Cefazolin Sodium/ Dextrose 50 ml @ 50 mls/hr Q8HR IV 10/28/25 14:00 Future Hold Cefazolin Sodium 50 ml @ 100 mls/hr Q8HR IV 10/28/25 14:00 10/28/25 22:29 Oxycodone HCl 10 mg ONCE PRN PO 10/28/25 11:15 10/28/25 11:51 10 MG Laboratory Results Laboratory Tests 10/28/25 04:56 Chemistry Test 10/28/25 04:56 Albumin 3.8 g/dL (3.2-4.8) Calcium Level 8.9 mg/dL (8.7-10.4) Total Protein 6.7 g/dL (5.7-8.2) LFT Test 10/28/25 04:56 Alanine Aminotransferase (ALT) 35 U/L (7-40) Alkaline Phosphatase 72 U/L (46-116) Aspartate Amino Transferase (AST) 33 U/L (13-40) Total Bilirubin 1.5 mg/dL (0.2-1.0) H Urinalysis Test 10/27/25 06:15 Urine Color Light-yellow (Yellow) Urine Clarity Clear (Clear) Urine pH 5.0 (5.0-9.0) Urine Specific [place] 1.027 (1.001-1.035) Urine Protein Trace (Negative) H Urine Ketones Negative (Negative) Urine Blood Negative /uL (Negative) Urine Nitrite Negative (Negative) Urine Bilirubin Negative (Negative) Urine Urobilinogen Normal mg/dL (Negative) Urine Leukocyte Esterase Negative /uL (Negative) Urine RBC 3 /hpf (0 - 3) Urine Microscopic WBC 2 /HPF (0-3) Urine Squamous Epithelial Cells Few /hpf (<5) Urine Bacteria Few /hpf (None Seen) H Urine Yeast (Budding) Occasional /hpf (None Urine Sperm Present /hpf (None Seen) Urine Glucose 4+ mg/dL (Normal) H Labs and/or images reviewed: Labs reviewed by me, Image(s) reviewed by me Assessment/Plan Assessment/Plan Intertrochanteric fracture left femur Status post Open reduction internal fixation left proximal femur subtrochanteric and Open reduction cephalomedullary nail left intertrochanteric fracture orthopedic Dr. Dexter on 10/28/2025 Mechanical fall COPD Sleep apnea Hypertension Diabetes cholesterol Asthma History of arthritis Morbid obesity BMI of 44 DVT prophylaxis: Lovenox Daughter Sherly at bedside [phone] Time spent 68 minutes Patient is Full code Advanced care planning time 20 minutes Plan discussed with: Patient Date of Service: Oct 28, 2025 Billing Provider: JOSE CURRIE MD Common Visit Codes: [id number] INP/OBS CARE(HIGH) JOSE CURRIE MD Oct 28, 2025 13:34
[2025-10-28] MEDS: ceFAZolin 1GM/50ML 50 ML IV SCH (13:48)
[2025-10-28] MEDS: HYDROcodone-ACET 10/325MG TAB PO PRN (13:49)
[2025-10-28] MEDS: SODIUM CHLOR 0.9% PF (SALINE LOCK) 10ML VIAL/SYR IV SCH (13:49)
[2025-10-28] MEDS ORDERED: ceFAZolin 2 GM/D5W50ml 50 ML IV SCH (14:00)
--- NOTE | 2025-10-28 18:14 | ECG ---
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
[2025-10-29] VITALS (11 sets, daily range): BP systolic 95–138; BP diastolic 54–73; PULSE 61–82; RESP 18–21; TEMP 97.7–98.6; O2SAT 2–97
[2025-10-29 05:11] LABS: Hematocrit 35.1 % (41.0-53.0); Hemoglobin 11.5 g/dL (13.5-17.5); Mean Corpuscular Hemoglobin 28.1 pg (28.0-32.0); Mean Corpuscular Volume 85.9 fL (80.0-100.0); Nucleated Red Blood Cells % 0.0 %
[2025-10-29 05:37] LABS: Chloride 102 mmol/L (98-107); Potassium 4.7 mmol/L (3.5-5.1); Sodium 139 mmol/L (136-145)
[2025-10-29 05:38] LABS: Anion Gap 6 (5-15); Calcium 8.8 mg/dL (8.7-10.4); Carbon Dioxide 31 mmol/L (20-31)
[2025-10-29 05:43] LABS: BUN/Creatinine Ratio 26.9 (10.0-20.0); Blood Urea Nitrogen 21 mg/dL (9-23)
[2025-10-29 05:49] LABS: Glucose 177 mg/dL (74-106)
[2025-10-29] MEDS: ENOXAPARIN SOD 40 MG/0.4 ML SYRINGE SC SCH (08:56)
--- NOTE | 2025-10-29 09:00 | DVHPN2 ---
Progress Note - Dictate Date Seen: Oct 29, 2025 Medical Necessity Reason Pt with a Central, PICC or Fol: No vital signs Vital Sign Date Time Temp Pulse Resp B/P (MAP) Pulse Ox O2 Delivery O2 Flow Rate FiO2 10/29/25 08:53 98.4 61 20 138/69 (92) 96 98.4 10/29/25 06:33 Facial BiPAP Mask 30 10/28/25 20:00 2 Total Intake and Output 10/28/25 10/28/25 10/29/25 15:00 23:00 07:00 Intake Total 120 ml 0 ml 1200 ml Output Total 1000 ml 1850 ml Balance -880 ml 0 ml -650 ml medications Current Medications Medications Dose Ordered Sig/Gil Route Start Time Stop Time Status Last Admin Dose Admin Sodium Chloride 1,000 ml @ 75 mls/hr [id number] IV 10/27/25 11:45 10/29/25 03:45 75 MLS/HR Acetaminophen/ Hydrocodone Bitart 1 tab Q4HP PRN PO 10/27/25 11:45 10/28/25 23:51 1 TAB Ondansetron HCl 4 mg Q4HP PRN IV 10/27/25 11:45 10/27/25 20:18 4 MG Docusate Sodium 100 mg BIDPRN PRN PO 10/27/25 11:45 Acetaminophen 650 mg Q6HP PRN PO 10/27/25 11:45 Morphine Sulfate 2 mg Q4HPRN PRN IV 10/27/25 12:00 10/27/25 20:15 2 MG Atorvastatin Calcium 40 mg HS PO 10/27/25 22:00 10/28/25 22:19 40 MG Terazosin HCl 5 mg DAILY PO 10/28/25 10:00 Diagnostic Test (Pha) 1 strip Q6HR 10/27/25 18:00 10/29/25 06:38 1 STRIP Insulin Human Regular Q6HR SC 10/27/25 18:00 10/29/25 06:37 3 UNITS Dextrose 50 ml UD PRN IV 10/27/25 12:15 Patient Own Medication 1 puff DAILY PO 10/28/25 10:00 Insulin Glargine 50 units HS SC 10/27/25 22:00 10/28/25 23:45 50 UNITS Sertraline HCl 100 mg DAILY PO 10/28/25 10:00 10/28/25 12:26 100 MG Lactated Ringer's 1,000 ml @ 100 mls/hr Q10H IV 10/28/25 11:00 10/28/25 12:18 100 MLS/HR Sodium Chloride 10 ml Q8HR IV 10/28/25 14:00 10/28/25 22:19 10 ML Enoxaparin Sodium 40 mg DAILY SC 10/29/25 10:00 Acetaminophen/ Hydrocodone Bitart 1 tab Q4HP PRN PO 10/28/25 11:00 10/28/25 13:49 1 TAB Cefazolin Sodium/ Dextrose 50 ml @ 50 mls/hr Q8HR IV 10/28/25 14:00 Hold Oxycodone HCl 10 mg ONCE PRN PO 10/28/25 11:15 10/28/25 11:51 10 MG laboratory and microbiology Laboratory Tests 10/29/25 04:38 Test 10/29/25 04:38 Range/Units Serum Glucose 177 H 74-106 mg/dL Assessment/Plan s/p ortho surgery: open reduction internal fixation of left proximal femur subtrochanteric Patient is a 64-year-old morbidly obese gentleman who presented to the hospital after mechanical fall. He was in bathroom and slipped over with heart floor and could not get up after that. He was brought to the hospital and is found to have left hip fracture. Patient is seen by Orthopedics who requested cardiology clearance/risk stratification prior to orthopedic surgery. Patient is known to our practice from outside and before. Does have history of diastolic heart failure and morbid obesity. No recent chest pain/shortness of breath. Has been compliant with medication and followups. Morbidly obese gentleman, lying flat in bed. On BiPAP no goiter, no carotid bruit, pink and wet mucosa. Chest: Scattered rhonchi and wheezing is heard. No crackles. Cardiac: Irregular regular, distant sounds. No thrill/gallop. Abdomen: Obese, nontender. No hepatomegaly. No gross mass. Limited mobility of left lower extremity. Past medical history includes COPD (on home oxygen), history of carpal tunnel disease, diastolic heart failure, degenerative disc disease, CKD, rheumatoid arthritis, diabetes mellitus, hypertension, hypertriglyceridemia, BPH, obstructive sleep apnea on CPAP, morbidly obese, depression and BPH. Echocardiogram of 2013 revealed probably normal EF Echocardiogram of February 02, 2022 revealed ejection fraction of 54%, mild dilatation of right ventricle with normal systolic function and no valvular disease. Echocardiogram of May 29, 2023 had reported ejection fraction of 50% and no severe valvular disease Echocardiogram of September 16, 2024 reported ejection fraction 50-55%, mild left atrial enlargement, trace MR/TR and right ventricular systolic pressure of less than 35 mm Hg Nuclear stress test of September 20, 2023 (performed in the office) reported no gross ischemia/scar, ejection fraction of 50% WBC: 18.8 - 8.3 - 10.8 Creatinine: 1.14 - 1.00 - 0.78 Potassium: 5.0 - 4.6 - 4.7 Femur x-ray reported: Significantly displaced partially comminuted subtrochanteric femoral fracture extending into the proximal diaphysis. Soft tissues are unremarkable. Hip x-ray reported: Acute comminuted fracture of the left proximal shaft involving the intertrochanteric region. The hip joint is not included in the field of view. The overlying soft tissues unremarkable. CT of the left hip reported: Redemonstration of complex comminuted intertrochanteric fracture of the proximal femur extending into the proximal femoral diaphysis. Moderate degenerative changes of the left hip joint. Chest xry revealed: IMPRESSION: Cardiomegaly with pulmonary vascular congestion and bilateral patchy airspace opacities. Small bilateral pleural effusions, [id number]. EKG revealed: NSR, no specific ST T changes Tele reveals sinus rhythm Echocardiogram revealed: Technically limited study secondary to poor acoustic windows. Left ventricle: Mild Concentric left ventricular hypertrophy was seen. LVEF was around 55%. Right ventricle was normal size with normal systolic function. Mild right ventricular hypertrophy was seen. Atria were not well- visualized. Aortic valve: Aortic valve was trileaflet. There was no aortic insufficiency/stenosis. Mild mitral/tricuspid regurgitation was observed. Pulmonary valve was not well visualized. Right ventricular systolic pressure was assessed normal at 35 mm Hg. There was no pericardial effusion. Patient is a 64-year-old gentleman who presented with post mechanical fall and left hip fracture. Patient is to go for orthopedic surgery and Orthopedic requested for risk stratification prior to surgery. Patient does have history of morbid obesity/diastolic heart failure/COPD (on home oxygen)/diabetes mellitus/rheumatoid arthritis. Echocardiogram was unrevealing of any significant valvular disease and reported preserved left ventricular systolic function. We do have a nuclear stress test of September 2023 which did not reveal any ischemia. Status post mechanical fall Hip fracture Diastolic heart failure, compensated Chronic respiratory failure Morbid obesity Diabetes Hypertension Cardiac suggestion for management: Manage on telemetry bed Follow-up electrolytes and kidney function tests and correct abnormalities Cardiac-nicolas, the patient is considered moderate risk patient for moderate risk orthopedic/hip surgery. Cardiac-nicolas, you can proceed with orthopedic/hip surgery under appropriate intra and postoperative hemodynamic monitoring. Avoid hypotension. s/p Ortho surgery DVT prophylaxis as per primary team Cardiac nicolas, is stable Further evaluation and management depends on the above and clinical course A total of 55 minutes was spent reviewing the patient record, examining the patient, making a diagnostic and therapeutic plan, discussing this plan with medical personnel, following up on diagnostic studies and following the patient for clinical stability excluding any and all procedures. At least 50% of this time was spent in direct, [id number] contact. Thank you for allowing me to participate in this patient's care. Further recommendations will depend on patient's clinical course. Please do not hesitate to contact me if you have any questions or concerns. This medical document was created using electronic medical record system with [employer] computerized dictation system. Although this document has been carefully reviewed, there may still be some phonetic and typographical errors. These areas are purely typographical due to the imperfection of the software programs, and do not reflect any compromise in the patient's medical care. Plan discussed with: Patient, Other (nurse) ABDIRIZAK REDMOND MD Oct 29, 2025 09:00
--- NOTE | 2025-10-29 10:03 | DVHPN2 ---
Progress Note - Dictate Date Seen: Oct 29, 2025 Medical Necessity Reason Pt with a Central, PICC or Fol: No Subjective Pain well-controlled. No acute events overnight. No physical therapy yet. vital signs Vital Sign Date Time Temp Pulse Resp B/P (MAP) Pulse Ox O2 Delivery O2 Flow Rate FiO2 10/29/25 08:57 138/69 10/29/25 08:53 98.4 61 20 96 98.4 10/29/25 06:33 Facial BiPAP Mask 30 10/28/25 20:00 2 Total Intake and Output 10/28/25 10/28/25 10/29/25 15:00 23:00 07:00 Intake Total 120 ml 0 ml 1200 ml Output Total 1000 ml 1850 ml Balance -880 ml 0 ml -650 ml medications Current Medications Medications Dose Ordered Sig/Gil Route Start Time Stop Time Status Last Admin Dose Admin Sodium Chloride 1,000 ml @ 75 mls/hr [id number] IV 10/27/25 11:45 10/29/25 03:45 75 MLS/HR Acetaminophen/ Hydrocodone Bitart 1 tab Q4HP PRN PO 10/27/25 11:45 10/28/25 23:51 1 TAB Ondansetron HCl 4 mg Q4HP PRN IV 10/27/25 11:45 10/27/25 20:18 4 MG Docusate Sodium 100 mg BIDPRN PRN PO 10/27/25 11:45 Acetaminophen 650 mg Q6HP PRN PO 10/27/25 11:45 Morphine Sulfate 2 mg Q4HPRN PRN IV 10/27/25 12:00 10/27/25 20:15 2 MG Atorvastatin Calcium 40 mg HS PO 10/27/25 22:00 10/28/25 22:19 40 MG Terazosin HCl 5 mg DAILY PO 10/28/25 10:00 10/29/25 08:57 5 MG Diagnostic Test (Pha) 1 strip Q6HR 10/27/25 18:00 10/29/25 06:38 1 STRIP Insulin Human Regular Q6HR SC 10/27/25 18:00 10/29/25 06:37 3 UNITS Dextrose 50 ml UD PRN IV 10/27/25 12:15 Patient Own Medication 1 puff DAILY PO 10/28/25 10:00 Insulin Glargine 50 units HS SC 10/27/25 22:00 10/28/25 23:45 50 UNITS Sertraline HCl 100 mg DAILY PO 10/28/25 10:00 10/29/25 08:57 100 MG Lactated Ringer's 1,000 ml @ 100 mls/hr Q10H IV 10/28/25 11:00 10/28/25 12:18 100 MLS/HR Sodium Chloride 10 ml Q8HR IV 10/28/25 14:00 10/28/25 22:19 10 ML Enoxaparin Sodium 40 mg DAILY SC 10/29/25 10:00 10/29/25 08:56 40 MG Acetaminophen/ Hydrocodone Bitart 1 tab Q4HP PRN PO 10/28/25 11:00 10/28/25 13:49 1 TAB Cefazolin Sodium/ Dextrose 50 ml @ 50 mls/hr Q8HR IV 10/28/25 14:00 Hold Oxycodone HCl 10 mg ONCE PRN PO 10/28/25 11:15 10/28/25 11:51 10 MG objective Alert and oriented x4 Dressing intact with sanguinous staining No calf tenderness Distally neurovascularly intact Labs reviewed laboratory and microbiology Laboratory Tests 10/29/25 04:38 Test 10/29/25 04:38 Range/Units Serum Glucose 177 H 74-106 mg/dL Assessment/Plan Postop day 1. s/p open reduction internal fixation subtrochanteric fracture and cephalomedullary nail for left intertrochanteric fracture Plan: Weightbearing as tolerated with a walker and physical therapy Up out of bed 3 times a day with meals Keep dressing intact Patient will need a walker and commode for home I anticipate this patient will require intermediate referral due to high fall risk Plan discussed with: Patient ROBY GUILLERMO MD Oct 29, 2025 10:03
--- NOTE | 2025-10-29 11:42 | DVHPN2 ---
Reviewed: Care Plan, H&P, Labs, Medications, Previous Orders, Radiology Changes from previous H/P or p: No Changes Eyes: No Pain, No Vision change, No Conjunctivae inflammation, No Eyelid inflammation, No Other, No Redness ENT: No Ear pain, No Ear discharge, No Nose pain, No Nose discharge, No Nose congestion, No Mouth pain, No Mouth swelling, No Throat pain, No Throat swelling, No Other Cardiovascular: No Chest Pain, No Palpitations, No Orthopnea, No Paroxysmal Noc. Dyspnea, No Edema, No Lt Headedness, No Other Respiratory: No Cough, No Dry, No Shortness of breath, No SOB with excertion, No Wheezing, No Hemoptysis, No Pleuritic Pain, No Sputum, No Other Gastrointestinal: No Nausea, No Vomiting, No Abdominal Pain, No Diarrhea, No Constipation, No Melena, No Hematochezia, No Other Genitourinary: No Dysuria, No Frequency, No Incontinence, No Hematuria, No Retention, No Other Musculoskeletal: No other, No neck pain, No shoulder pain, No arm pain, No back pain, No hand pain; leg pain (left); No foot pain Skin: No Rash, No Lesions, No Jaundice, No Bruising, No Other Objective Vitals Vital Signs Date Time Temp Pulse Resp B/P (MAP) Pulse Ox O2 Delivery O2 Flow Rate FiO2 10/29/25 08:57 138/69 10/29/25 08:53 98.4 61 20 96 98.4 10/29/25 08:00 Nasal Cannula* 2 28 Intake/Output Intake and Output 10/29/25 07:00 Intake Total 1320 ml Output Total 2850 ml Balance -1530 ml Intake Oral 1200 ml IV Total 120 ml Output Urine Total 2850 ml Medications Current Medications Medications Dose Ordered Sig/Gil Route Start Time Stop Time Status Last Admin Dose Admin Sodium Chloride 1,000 ml @ 75 mls/hr [id number] IV 10/27/25 11:45 10/29/25 03:45 75 MLS/HR Acetaminophen/ Hydrocodone Bitart 1 tab Q4HP PRN PO 10/27/25 11:45 10/28/25 23:51 1 TAB Ondansetron HCl 4 mg Q4HP PRN IV 10/27/25 11:45 10/27/25 20:18 4 MG Docusate Sodium 100 mg BIDPRN PRN PO 10/27/25 11:45 Acetaminophen 650 mg Q6HP PRN PO 10/27/25 11:45 Morphine Sulfate 2 mg Q4HPRN PRN IV 10/27/25 12:00 10/27/25 20:15 2 MG Atorvastatin Calcium 40 mg HS PO 10/27/25 22:00 10/28/25 22:19 40 MG Terazosin HCl 5 mg DAILY PO 10/28/25 10:00 10/29/25 08:57 5 MG Diagnostic Test (Pha) 1 strip Q6HR 10/27/25 18:00 10/29/25 06:38 1 STRIP Insulin Human Regular Q6HR SC 10/27/25 18:00 10/29/25 06:37 3 UNITS Dextrose 50 ml UD PRN IV 10/27/25 12:15 Patient Own Medication 1 puff DAILY PO 10/28/25 10:00 Insulin Glargine 50 units HS SC 10/27/25 22:00 10/28/25 23:45 50 UNITS Sertraline HCl 100 mg DAILY PO 10/28/25 10:00 10/29/25 08:57 100 MG Lactated Ringer's 1,000 ml @ 100 mls/hr Q10H IV 10/28/25 11:00 10/28/25 12:18 100 MLS/HR Sodium Chloride 10 ml Q8HR IV 10/28/25 14:00 10/28/25 22:19 10 ML Enoxaparin Sodium 40 mg DAILY SC 10/29/25 10:00 10/29/25 08:56 40 MG Acetaminophen/ Hydrocodone Bitart 1 tab Q4HP PRN PO 10/28/25 11:00 10/28/25 13:49 1 TAB Cefazolin Sodium/ Dextrose 50 ml @ 50 mls/hr Q8HR IV 10/28/25 14:00 Hold Oxycodone HCl 10 mg ONCE PRN PO 10/28/25 11:15 10/28/25 11:51 10 MG Laboratory Results Laboratory Tests 10/29/25 04:38 Chemistry Test 10/29/25 04:38 Calcium Level 8.8 mg/dL (8.7-10.4) Urinalysis Test 10/27/25 06:15 Urine Color Light-yellow (Yellow) Urine Clarity Clear (Clear) Urine pH 5.0 (5.0-9.0) Urine Specific [place] 1.027 (1.001-1.035) Urine Protein Trace (Negative) H Urine Ketones Negative (Negative) Urine Blood Negative /uL (Negative) Urine Nitrite Negative (Negative) Urine Bilirubin Negative (Negative) Urine Urobilinogen Normal mg/dL (Negative) Urine Leukocyte Esterase Negative /uL (Negative) Urine RBC 3 /hpf (0 - 3) Urine Microscopic WBC 2 /HPF (0-3) Urine Squamous Epithelial Cells Few /hpf (<5) Urine Bacteria Few /hpf (None Seen) H Urine Yeast (Budding) Occasional /hpf (None Urine Sperm Present /hpf (None Seen) Urine Glucose 4+ mg/dL (Normal) H Labs and/or images reviewed: Labs reviewed by me, Image(s) reviewed by me Assessment/Plan Assessment/Plan Intertrochanteric fracture left femur Status post Open reduction internal fixation left proximal femur subtrochanteric and Open reduction cephalomedullary nail left intertrochanteric fracture orthopedic Dr. Dexter on 10/28/2025 Mechanical fall COPD Sleep apnea Hypertension Diabetes cholesterol Asthma History of arthritis Morbid obesity BMI of 44 DVT prophylaxis: Lovenox Daughter Sherly at bedside [phone] Time spent 65 minutes Patient is Full code Advanced care planning time 20 minutes Plan discussed with: Patient Date of Service: Oct 29, 2025 Billing Provider: JOSE CURRIE MD Common Visit Codes: [id number] INP/OBS CARE(HIGH) JOSE CURRIE MD Oct 29, 2025 11:42
[2025-10-29] MEDS: ceFAZolin 2 GM/D5W50ml 50 ML IV ONE (13:02)
[2025-10-30] VITALS (11 sets, daily range): BP systolic 91–126; BP diastolic 47–66; PULSE 60–97; RESP 16–20; TEMP 98–98.6; O2SAT 4–98
--- NOTE | 2025-10-30 08:28 | DVHPN2 ---
Progress Note - Dictate Date Seen: Oct 30, 2025 Medical Necessity Reason Pt with a Central, PICC or Fol: No Subjective Pain well-controlled. No acute events overnight. WalkedafewstepswithPT. Only came by once. vital signs Vital Sign Date Time Temp Pulse Resp B/P (MAP) Pulse Ox O2 Delivery O2 Flow Rate FiO2 10/30/25 07:55 94 Nasal Cannula 4.0 10/30/25 07:55 36 10/30/25 05:00 98.2 60 18 126/62 (83) 98.2 Total Intake and Output 10/29/25 10/29/25 10/30/25 15:00 23:00 07:00 Intake Total 900 ml 600 ml Output Total 1200 ml 1500 ml Balance -300 ml -900 ml medications Current Medications Medications Dose Ordered Sig/Gil Route Start Time Stop Time Status Last Admin Dose Admin Sodium Chloride 1,000 ml @ 75 mls/hr [id number] IV 10/27/25 11:45 10/29/25 14:03 75 MLS/HR Acetaminophen/ Hydrocodone Bitart 1 tab Q4HP PRN PO 10/27/25 11:45 10/30/25 00:53 1 TAB Ondansetron HCl 4 mg Q4HP PRN IV 10/27/25 11:45 10/27/25 20:18 4 MG Docusate Sodium 100 mg BIDPRN PRN PO 10/27/25 11:45 Acetaminophen 650 mg Q6HP PRN PO 10/27/25 11:45 Morphine Sulfate 2 mg Q4HPRN PRN IV 10/27/25 12:00 10/27/25 20:15 2 MG Atorvastatin Calcium 40 mg HS PO 10/27/25 22:00 10/29/25 20:54 40 MG Terazosin HCl 5 mg DAILY PO 10/28/25 10:00 10/29/25 08:57 5 MG Diagnostic Test (Pha) 1 strip Q6HR 10/27/25 18:00 10/30/25 06:04 1 STRIP Insulin Human Regular Q6HR SC 10/27/25 18:00 10/30/25 00:59 3 UNITS Dextrose 50 ml UD PRN IV 10/27/25 12:15 Patient Own Medication 1 puff DAILY PO 10/28/25 10:00 Insulin Glargine 50 units HS SC 10/27/25 22:00 10/29/25 21:17 50 UNITS Sertraline HCl 100 mg DAILY PO 10/28/25 10:00 10/29/25 08:57 100 MG Lactated Ringer's 1,000 ml @ 100 mls/hr Q10H IV 10/28/25 11:00 10/28/25 12:18 100 MLS/HR Sodium Chloride 10 ml Q8HR IV 10/28/25 14:00 10/30/25 06:03 10 ML Enoxaparin Sodium 40 mg DAILY SC 10/29/25 10:00 10/29/25 08:56 40 MG Acetaminophen/ Hydrocodone Bitart 1 tab Q4HP PRN PO 10/28/25 11:00 10/28/25 13:49 1 TAB Oxycodone HCl 10 mg ONCE PRN PO 10/28/25 11:15 10/28/25 11:51 10 MG objective Alert and oriented x4 Dressing intact with sanguinous staining No calf tenderness Distally neurovascularly intact Labs reviewed laboratory and microbiology Laboratory Tests 10/29/25 04:38 Test 10/29/25 04:38 Range/Units Serum Glucose 177 H 74-106 mg/dL Assessment/Plan Postop day 2. s/p open reduction internal fixation subtrochanteric fracture and cephalomedullary nail for left intertrochanteric fracture Plan: Weightbearing as tolerated with a walker and physical therapy Up out of bed 3 times a day with meals Keep dressing intact Patient will need a walker and commode for home I anticipate this patient will require long-term referral due to high fall risk Plan discussed with: Patient ROBY GUILLERMO MD Oct 30, 2025 08:28
--- NOTE | 2025-10-30 10:27 | DVHPN2 ---
Reviewed: Care Plan, H&P, Labs, Medications, Previous Orders, Radiology Changes from previous H/P or p: No Changes Eyes: No Pain, No Vision change, No Conjunctivae inflammation, No Eyelid inflammation, No Other, No Redness ENT: No Ear pain, No Ear discharge, No Nose pain, No Nose discharge, No Nose congestion, No Mouth pain, No Mouth swelling, No Throat pain, No Throat swelling, No Other Cardiovascular: No Chest Pain, No Palpitations, No Orthopnea, No Paroxysmal Noc. Dyspnea, No Edema, No Lt Headedness, No Other Respiratory: No Cough, No Dry, No Shortness of breath, No SOB with excertion, No Wheezing, No Hemoptysis, No Pleuritic Pain, No Sputum, No Other Gastrointestinal: No Nausea, No Vomiting, No Abdominal Pain, No Diarrhea, No Constipation, No Melena, No Hematochezia, No Other Genitourinary: No Dysuria, No Frequency, No Incontinence, No Hematuria, No Retention, No Other Musculoskeletal: No other, No neck pain, No shoulder pain, No arm pain, No back pain, No hand pain; leg pain (left); No foot pain Skin: No Rash, No Lesions, No Jaundice, No Bruising, No Other Objective Vitals Vital Signs Date Time Temp Pulse Resp B/P (MAP) Pulse Ox O2 Delivery O2 Flow Rate FiO2 10/30/25 10:17 112/55 10/30/25 10:16 70 20 10/30/25 08:00 4 Nasal Cannula* 2 28 10/30/25 05:00 98.2 98.2 Intake/Output Intake and Output 10/30/25 07:00 Intake Total 1500 ml Output Total 2700 ml Balance -1200 ml Intake Oral 1500 ml Output Urine Total 2700 ml Medications Current Medications Medications Dose Ordered Sig/Gil Route Start Time Stop Time Status Last Admin Dose Admin Sodium Chloride 1,000 ml @ 75 mls/hr [id number] IV 10/27/25 11:45 10/29/25 14:03 75 MLS/HR Acetaminophen/ Hydrocodone Bitart 1 tab Q4HP PRN PO 10/27/25 11:45 10/30/25 00:53 1 TAB Ondansetron HCl 4 mg Q4HP PRN IV 10/27/25 11:45 10/27/25 20:18 4 MG Docusate Sodium 100 mg BIDPRN PRN PO 10/27/25 11:45 Acetaminophen 650 mg Q6HP PRN PO 10/27/25 11:45 Morphine Sulfate 2 mg Q4HPRN PRN IV 10/27/25 12:00 10/30/25 10:16 2 MG Atorvastatin Calcium 40 mg HS PO 10/27/25 22:00 10/29/25 20:54 40 MG Terazosin HCl 5 mg DAILY PO 10/28/25 10:00 10/30/25 10:17 5 MG Diagnostic Test (Pha) 1 strip Q6HR 10/27/25 18:00 10/30/25 06:04 1 STRIP Insulin Human Regular Q6HR SC 10/27/25 18:00 10/30/25 00:59 3 UNITS Dextrose 50 ml UD PRN IV 10/27/25 12:15 Patient Own Medication 1 puff DAILY PO 10/28/25 10:00 Insulin Glargine 50 units HS SC 10/27/25 22:00 10/29/25 21:17 50 UNITS Sertraline HCl 100 mg DAILY PO 10/28/25 10:00 10/30/25 10:15 100 MG Lactated Ringer's 1,000 ml @ 100 mls/hr Q10H IV 10/28/25 11:00 10/28/25 12:18 100 MLS/HR Sodium Chloride 10 ml Q8HR IV 10/28/25 14:00 10/30/25 06:03 10 ML Enoxaparin Sodium 40 mg DAILY SC 10/29/25 10:00 10/30/25 10:15 40 MG Acetaminophen/ Hydrocodone Bitart 1 tab Q4HP PRN PO 10/28/25 11:00 10/28/25 13:49 1 TAB Oxycodone HCl 10 mg ONCE PRN PO 10/28/25 11:15 10/28/25 11:51 10 MG Laboratory Results Laboratory Tests 10/29/25 04:38 Urinalysis Test 10/27/25 06:15 Urine Color Light-yellow (Yellow) Urine Clarity Clear (Clear) Urine pH 5.0 (5.0-9.0) Urine Specific [place] 1.027 (1.001-1.035) Urine Protein Trace (Negative) H Urine Ketones Negative (Negative) Urine Blood Negative /uL (Negative) Urine Nitrite Negative (Negative) Urine Bilirubin Negative (Negative) Urine Urobilinogen Normal mg/dL (Negative) Urine Leukocyte Esterase Negative /uL (Negative) Urine RBC 3 /hpf (0 - 3) Urine Microscopic WBC 2 /HPF (0-3) Urine Squamous Epithelial Cells Few /hpf (<5) Urine Bacteria Few /hpf (None Seen) H Urine Yeast (Budding) Occasional /hpf (None Urine Sperm Present /hpf (None Seen) Urine Glucose 4+ mg/dL (Normal) H Labs and/or images reviewed: Labs reviewed by me, Image(s) reviewed by me Assessment/Plan Assessment/Plan Intertrochanteric fracture left femur Status post Open reduction internal fixation left proximal femur subtrochanteric and Open reduction cephalomedullary nail left intertrochanteric fracture orthopedic Dr. Dexter on 10/28/2025 Mechanical fall COPD Sleep apnea Hypertension Diabetes cholesterol Asthma History of arthritis Morbid obesity BMI of 44 DVT prophylaxis: Lovenox Daughter Sherly at bedside [phone] Per Ortho recommendation patient being discharged to [facility] facility for rehab The patient and the daughter agree Plan discussed with: Patient Date of Service: Oct 30, 2025 Billing Provider: JOSE CURRIE MD Common Visit Codes: [id number] INP/OBS CARE(HIGH) JOSE CURRIE MD Oct 30, 2025 10:27
--- NOTE | 2025-10-30 10:31 | DVHDS2 ---
Discharge Summary Date of Admission Oct 27, 2025 at 11:31 Date of Discharge: Oct 30, 2025 Admitting Diagnosis Fracture left femur Wounds: ORIF fracture left femur Labs/Diagnostic Data: Laboratory Results Test 10/30/25 06:10 10/29/25 04:38 10/28/25 04:56 10/27/25 06:15 POC Glucose 125 mg/dl (70-106) White Blood Count 10.8 10^3/uL (4.4-10.8) Red Blood Count 4.08 10^6/uL (4.5-5.90) Hemoglobin 11.5 g/dL (13.5-17.5) Hematocrit 35.1 % (41.0-53.0) Mean Corpuscular Volume 85.9 fL (80.0-100.0) Mean Corpuscular Hemoglobin 28.1 pg (28.0-32.0) Mean Corpuscular Hemoglobin Concent 32.7 g/dL (32.0-36.0) Red Cell Distribution Width 15.8 % (11.8-14.3) Platelet Count 186 10^3/uL (140-450) Mean Platelet Volume 7.6 fL (6.9-10.8) Neutrophils (%) (Auto) 83.2 % (37.0-80.0) Lymphocytes (%) (Auto) 8.3 % (10.0-50.0) Monocytes (%) (Auto) 8.5 % (0.0-12.0) Eosinophils (%) (Auto) 0.0 % (0.0-7.0) Basophils (%) (Auto) 0.0 % (0.0-2.0) Neutrophils # (Auto) 9.0 10 ^3/uL (1.6-8.6) Lymphocytes # (Auto) 0.9 10 ^3/uL (0.4-5.4) Monocytes # (Auto) 0.9 10 ^3/uL (0-1.3) Eosinophils # (Auto) 0 10 ^3/uL (0-0.8) Basophils # (Auto) 0 10 ^3/uL (0-0.2) Nucleated Red Blood Cells 0.0 % Sodium Level 139 mmol/L (136-145) Potassium Level 4.7 mmol/L (3.5-5.1) Chloride Level 102 mmol/L (98-107) Carbon Dioxide Level 31 mmol/L (20-31) Anion Gap 6 (5-15) Blood Urea Nitrogen 21 mg/dL (9-23) Creatinine 0.78 mg/dL (0.700-1.30) Glomerular Filtration Rate Calc 98 mL/min (>90) BUN/Creatinine Ratio 26.9 (10.0-20.0) Serum Glucose 177 mg/dL (74-106) Calcium Level 8.8 mg/dL (8.7-10.4) Total Bilirubin 1.5 mg/dL (0.2-1.0) Aspartate Amino Transferase (AST) 33 U/L (13-40) Alanine Aminotransferase (ALT) 35 U/L (7-40) Alkaline Phosphatase 72 U/L (46-116) Total Protein 6.7 g/dL (5.7-8.2) Albumin 3.8 g/dL (3.2-4.8) Urine Color Light-yellow (Yellow) Urine Clarity Clear (Clear) Urine pH 5.0 (5.0-9.0) Urine Specific [place] 1.027 (1.001-1.035) Urine Protein Trace (Negative) Urine Ketones Negative (Negative) Urine Blood Negative /uL (Negative) Urine Nitrite Negative (Negative) Urine Bilirubin Negative (Negative) Urine Urobilinogen Normal mg/dL (Negative) Urine Leukocyte Esterase Negative /uL (Negative) Urine RBC 3 /hpf (0 - 3) Urine Microscopic WBC 2 /HPF (0-3) Urine Squamous Epithelial Cells Few /hpf (<5) Urine Bacteria Few /hpf (None Seen) Urine Yeast (Budding) Occasional /hpf (None Urine Sperm Present /hpf (None Seen) Urine Glucose 4+ mg/dL (Normal) Test 10/27/25 03:25 Hemoglobin A1c 7.6 % A1C (<5.7) Other Laboratory Tests 10/29/25 04:38 Brief Hx & Hospital Course: 64-year-old morbidly obese with a history of hypertension diabetes cholesterol Asthma Arthritis COPD sleep apnea had a mechanical fall sustained intertrochanteric fracture left femur and underwent ORIF by Dr. Dexter. Received pain management and physical therapy. Orthopedic [facility] for which the patient agrees. Discussed with the patient and the patient's daughter Sherly and the patient to be discharged to SNF for rehab physical therapy comorbid conditions addressed appropriately Consults/Reason for consult Orthopedic Dr Dexter Operations or Procedures ORIF fracture left femur Condition at Discharge: Fair Final Diagnosis/Problems List Intertrochanteric fracture left femur Status post Open reduction internal fixation left proximal femur subtrochanteric and Open reduction cephalomedullary nail left intertrochanteric fracture orthopedic Dr. Dexter on 10/28/2025 Mechanical fall COPD Sleep apnea Hypertension Diabetes cholesterol Asthma History of arthritis Morbid obesity BMI of 44 DVT prophylaxis: Lovenox Discharge Disposition: Intermediate Facility Discharge Instruct/Medications Diet: Cardiac 2g Na,low cholest Activity: Light activity Follow Up/Referral: Follow up with the detention Medications: see list Scheduled Albuterol Sulfate (Ventolin Mdi), 2 PUFF IN PRN, (Reported) Atorvastatin Calcium (Atorvastatin Calcium), 40 MG PO HS Budesonide (Inhalation) (Budesonide), 0.5 MG IN BID [id number] (Trelegy Ellipta 100-62.5-25 Mcg/INH), 1 PUFF INH DAILY, (Reported) Insulin Glargine (Lantus Solostar), 50 UNITS SC HS, (Reported) Sertraline Hcl (Sertraline Hcl), 1 TAB PO DAILY, (Reported) Terazosin Hcl (Terazosin Hcl), 5 MG PO DAILY, (Reported) Scheduled PRN Albuterol Sulfate (Ventolin), 1 VIAL NEB Q4HR PRN Discontinued Medications Amlodipine Besylate (Norvasc Tablet), 5 MG PO DAILY Fluoxetine Hcl (Fluoxetine Hcl), 20 MG PO DAILY, (Reported) Glyburide (Glyburide), 5 MG PO TID, (Reported) Hydrocodone-Acetaminophen (Hydrocodone Bitartrate/AC 5-325 mg), 1 TAB PO Q36AUTR PRN Insulin Glargine (Basaglar Kwikpen), 20 UNIT SC, (Reported) Metformin Hydrochloride (Metformin Hcl), 500 MG PO BID, (Reported) Oseltamivir Phosphate (Tamiflu), 75 MG PO BID 39 (Time taken for discharge summary 39 minutes) Discharge Statement: "Patient was advised to return to the ER or call 911 if any headaches, dizziness, shortness of breath, chest pain, abdominal pain, bleeding, fevers, or worsening of medical condition. Patient was counseled about treatment plan, medications, possible side effects, patientverbalized understanding. All questions were answered to the best of my ability. This discharge took greater then 30 minutes in planning, reviewing documentation, counseling the patient, and discussing with other team members." ASSESSMENT ASSESSMENT Hospital Course Improved Assessment Intertrochanteric fracture left femur Status post Open reduction internal fixation left proximal femur subtrochanteric and Open reduction cephalomedullary nail left intertrochanteric fracture orthopedic Dr. Dexter on 10/28/2025 Mechanical fall COPD Sleep apnea Hypertension Diabetes cholesterol Asthma History of arthritis Morbid obesity BMI of 44 DVT prophylaxis: Lovenox Date of Service: Oct 30, 2025 Billing Provider: JOSE CURRIE MD Common Visit Codes: [id number] DISCH DAY >30min JOSE CURRIE MD Oct 30, 2025 10:31
--- NOTE | 2025-10-30 12:33 | DVHPN2 ---
Progress Note - Dictate Date Seen: Oct 30, 2025 Medical Necessity Reason Pt with a Central, PICC or Fol: No vital signs Vital Sign Date Time Temp Pulse Resp B/P (MAP) Pulse Ox O2 Delivery O2 Flow Rate FiO2 10/30/25 10:31 79 16 126/62 94 4.0 36 10/30/25 08:00 Nasal Cannula* 10/30/25 05:00 98.2 98.2 Total Intake and Output 10/29/25 10/29/25 10/30/25 15:00 23:00 07:00 Intake Total 900 ml 600 ml Output Total 1200 ml 1500 ml Balance -300 ml -900 ml medications Current Medications Medications Dose Ordered Sig/Gil Route Start Time Stop Time Status Last Admin Dose Admin Sodium Chloride 1,000 ml @ 75 mls/hr [id number] IV 10/27/25 11:45 10/29/25 14:03 75 MLS/HR Acetaminophen/ Hydrocodone Bitart 1 tab Q4HP PRN PO 10/27/25 11:45 10/30/25 00:53 1 TAB Ondansetron HCl 4 mg Q4HP PRN IV 10/27/25 11:45 10/27/25 20:18 4 MG Docusate Sodium 100 mg BIDPRN PRN PO 10/27/25 11:45 Acetaminophen 650 mg Q6HP PRN PO 10/27/25 11:45 Morphine Sulfate 2 mg Q4HPRN PRN IV 10/27/25 12:00 10/30/25 10:16 2 MG Atorvastatin Calcium 40 mg HS PO 10/27/25 22:00 10/29/25 20:54 40 MG Terazosin HCl 5 mg DAILY PO 10/28/25 10:00 10/30/25 10:17 5 MG Diagnostic Test (Pha) 1 strip Q6HR 10/27/25 18:00 10/30/25 12:26 1 STRIP Insulin Human Regular Q6HR SC 10/27/25 18:00 10/30/25 00:59 3 UNITS Dextrose 50 ml UD PRN IV 10/27/25 12:15 Patient Own Medication 1 puff DAILY PO 10/28/25 10:00 Insulin Glargine 50 units HS SC 10/27/25 22:00 10/29/25 21:17 50 UNITS Sertraline HCl 100 mg DAILY PO 10/28/25 10:00 10/30/25 10:15 100 MG Lactated Ringer's 1,000 ml @ 100 mls/hr Q10H IV 10/28/25 11:00 10/28/25 12:18 100 MLS/HR Sodium Chloride 10 ml Q8HR IV 10/28/25 14:00 10/30/25 06:03 10 ML Enoxaparin Sodium 40 mg DAILY SC 10/29/25 10:00 10/30/25 10:15 40 MG Acetaminophen/ Hydrocodone Bitart 1 tab Q4HP PRN PO 10/28/25 11:00 10/28/25 13:49 1 TAB Oxycodone HCl 10 mg ONCE PRN PO 10/28/25 11:15 10/28/25 11:51 10 MG laboratory and microbiology Laboratory Tests 10/29/25 04:38 Test 10/29/25 04:38 Range/Units Serum Glucose 177 H 74-106 mg/dL Assessment/Plan s/p ortho surgery: open reduction internal fixation of left proximal femur subtrochanteric Patient is a 64-year-old morbidly obese gentleman who presented to the hospital after mechanical fall. He was in bathroom and slipped over with heart floor and could not get up after that. He was brought to the hospital and is found to have left hip fracture. Patient is seen by Orthopedics who requested cardiology clearance/risk stratification prior to orthopedic surgery. Patient is known to our practice from outside and before. Does have history of diastolic heart failure and morbid obesity. No recent chest pain/shortness of breath. Has been compliant with medication and followups. Morbidly obese gentleman, lying flat in bed. On BiPAP no goiter, no carotid bruit, pink and wet mucosa. Chest: Scattered rhonchi and wheezing is heard. No crackles. Cardiac: Irregular regular, distant sounds. No thrill/gallop. Abdomen: Obese, nontender. No hepatomegaly. No gross mass. Limited mobility of left lower extremity. Past medical history includes COPD (on home oxygen), history of carpal tunnel disease, diastolic heart failure, degenerative disc disease, CKD, rheumatoid arthritis, diabetes mellitus, hypertension, hypertriglyceridemia, BPH, obstructive sleep apnea on CPAP, morbidly obese, depression and BPH. Echocardiogram of 2013 revealed probably normal EF Echocardiogram of February 02, 2022 revealed ejection fraction of 54%, mild dilatation of right ventricle with normal systolic function and no valvular disease. Echocardiogram of May 29, 2023 had reported ejection fraction of 50% and no severe valvular disease Echocardiogram of September 16, 2024 reported ejection fraction 50-55%, mild left atrial enlargement, trace MR/TR and right ventricular systolic pressure of less than 35 mm Hg Nuclear stress test of September 20, 2023 (performed in the office) reported no gross ischemia/scar, ejection fraction of 50% WBC: 18.8 - 8.3 - 10.8 Creatinine: 1.14 - 1.00 - 0.78 Potassium: 5.0 - 4.6 - 4.7 Femur x-ray reported: Significantly displaced partially comminuted subtrochanteric femoral fracture extending into the proximal diaphysis. Soft tissues are unremarkable. Hip x-ray reported: Acute comminuted fracture of the left proximal shaft involving the intertrochanteric region. The hip joint is not included in the field of view. The overlying soft tissues unremarkable. CT of the left hip reported: Redemonstration of complex comminuted intertrochanteric fracture of the proximal femur extending into the proximal femoral diaphysis. Moderate degenerative changes of the left hip joint. Chest xry revealed: IMPRESSION: Cardiomegaly with pulmonary vascular congestion and bilateral patchy airspace opacities. Small bilateral pleural effusions, [id number]-right. EKG revealed: NSR, no specific ST T changes Tele reveals sinus rhythm Echocardiogram revealed: Technically limited study secondary to poor acoustic windows. Left ventricle: Mild Concentric left ventricular hypertrophy was seen. LVEF was around 55%. Right ventricle was normal size with normal systolic function. Mild right ventricular hypertrophy was seen. Atria were not well- visualized. Aortic valve: Aortic valve was trileaflet. There was no aortic insufficiency/stenosis. Mild mitral/tricuspid regurgitation was observed. Pulmonary valve was not well visualized. Right ventricular systolic pressure was assessed normal at 35 mm Hg. There was no pericardial effusion. Patient is a 64-year-old gentleman who presented with post mechanical fall and left hip fracture. Patient is to go for orthopedic surgery and Orthopedic requested for risk stratification prior to surgery. Patient does have history of morbid obesity/diastolic heart failure/COPD (on home oxygen)/diabetes mellitus/rheumatoid arthritis. Echocardiogram was unrevealing of any significant valvular disease and reported preserved left ventricular systolic function. We do have a nuclear stress test of September 2023 which did not reveal any ischemia. Status post mechanical fall Hip fracture Diastolic heart failure, compensated Chronic respiratory failure Morbid obesity Diabetes Hypertension Cardiac suggestion for management: Manage on telemetry bed Follow-up electrolytes and kidney function tests and correct abnormalities Cardiac-nicolas, the patient is considered moderate risk patient for moderate risk orthopedic/hip surgery. Cardiac-nicolas, you can proceed with orthopedic/hip surgery under appropriate intra and postoperative hemodynamic monitoring. Avoid hypotension. s/p Ortho surgery DVT prophylaxis as per primary team Cardiac nicolas, is stable Further evaluation and management depends on the above and clinical course A total of 55 minutes was spent reviewing the patient record, examining the patient, making a diagnostic and therapeutic plan, discussing this plan with medical personnel, following up on diagnostic studies and following the patient for clinical stability excluding any and all procedures. At least 50% of this time was spent in direct, [id number] contact. Thank you for allowing me to participate in this patient's care. Further recommendations will depend on patient's clinical course. Please do not hesitate to contact me if you have any questions or concerns. This medical document was created using electronic medical record system with [employer] computerized dictation system. Although this document has been carefully reviewed, there may still be some phonetic and typographical errors. These areas are purely typographical due to the imperfection of the software programs, and do not reflect any compromise in the patient's medical care. Plan discussed with: Patient, Other (nurse) ABDIRIZAK REDMOND MD Oct 30, 2025 12:33
[2025-10-31] VITALS (7 sets, daily range): BP systolic 110–139; BP diastolic 54–68; PULSE 67–94; RESP 17–20; TEMP 97.2–98.4; O2SAT 94–97
--- NOTE | 2025-10-31 08:46 | DVHPN2 ---
Progress Note - Dictate Date Seen: Oct 31, 2025 Medical Necessity Reason Pt with a Central, PICC or Fol: No vital signs Vital Sign Date Time Temp Pulse Resp B/P (MAP) Pulse Ox O2 Delivery O2 Flow Rate FiO2 10/31/25 08:28 97 Bi-pap/CPAP 10/31/25 08:28 32 10/31/25 05:00 98.2 74 18 139/68 (91) 98.2 Total Intake and Output 10/30/25 10/30/25 10/31/25 15:00 23:00 07:00 Intake Total 890 ml 600 ml Output Total 600 ml 500 ml Balance 290 ml 100 ml medications Current Medications Medications Dose Ordered Sig/Gil Route Start Time Stop Time Status Last Admin Dose Admin Sodium Chloride 1,000 ml @ 75 mls/hr [id number] IV 10/27/25 11:45 10/31/25 06:20 75 MLS/HR Acetaminophen/ Hydrocodone Bitart 1 tab Q4HP PRN PO 10/27/25 11:45 10/30/25 18:44 1 TAB Ondansetron HCl 4 mg Q4HP PRN IV 10/27/25 11:45 10/27/25 20:18 4 MG Docusate Sodium 100 mg BIDPRN PRN PO 10/27/25 11:45 Acetaminophen 650 mg Q6HP PRN PO 10/27/25 11:45 Morphine Sulfate 2 mg Q4HPRN PRN IV 10/27/25 12:00 10/30/25 10:16 2 MG Atorvastatin Calcium 40 mg HS PO 10/27/25 22:00 10/30/25 21:17 40 MG Terazosin HCl 5 mg DAILY PO 10/28/25 10:00 10/30/25 10:17 5 MG Diagnostic Test (Pha) 1 strip Q6HR 10/27/25 18:00 10/31/25 06:21 1 STRIP Insulin Human Regular Q6HR SC 10/27/25 18:00 10/31/25 06:25 2 UNITS Dextrose 50 ml UD PRN IV 10/27/25 12:15 Patient Own Medication 1 puff DAILY PO 10/28/25 10:00 Insulin Glargine 50 units HS SC 10/27/25 22:00 10/30/25 21:16 50 UNITS Sertraline HCl 100 mg DAILY PO 10/28/25 10:00 10/30/25 10:15 100 MG Lactated Ringer's 1,000 ml @ 100 mls/hr Q10H IV 10/28/25 11:00 10/28/25 12:18 100 MLS/HR Sodium Chloride 10 ml Q8HR IV 10/28/25 14:00 10/31/25 06:21 10 ML Enoxaparin Sodium 40 mg DAILY SC 10/29/25 10:00 10/30/25 10:15 40 MG Acetaminophen/ Hydrocodone Bitart 1 tab Q4HP PRN PO 10/28/25 11:00 10/28/25 13:49 1 TAB Oxycodone HCl 10 mg ONCE PRN PO 10/28/25 11:15 10/28/25 11:51 10 MG laboratory and microbiology Laboratory Tests 10/29/25 04:38 Test 10/29/25 04:38 Range/Units Serum Glucose 177 H 74-106 mg/dL Assessment/Plan s/p ortho surgery: open reduction internal fixation of left proximal femur subtrochanteric Patient is a 64-year-old morbidly obese gentleman who presented to the hospital after mechanical fall. He was in bathroom and slipped over with heart floor and could not get up after that. He was brought to the hospital and is found to have left hip fracture. Patient is seen by Orthopedics who requested cardiology clearance/risk stratification prior to orthopedic surgery. Patient is known to our practice from outside and before. Does have history of diastolic heart failure and morbid obesity. No recent chest pain/shortness of breath. Has been compliant with medication and followups. Morbidly obese gentleman, lying flat in bed. On BiPAP no goiter, no carotid bruit, pink and wet mucosa. Chest: Scattered rhonchi and wheezing is heard. No crackles. Cardiac: Irregular regular, distant sounds. No thrill/gallop. Abdomen: Obese, nontender. No hepatomegaly. No gross mass. Limited mobility of left lower extremity. Past medical history includes COPD (on home oxygen), history of carpal tunnel disease, diastolic heart failure, degenerative disc disease, CKD, rheumatoid arthritis, diabetes mellitus, hypertension, hypertriglyceridemia, BPH, obstructive sleep apnea on CPAP, morbidly obese, depression and BPH. Echocardiogram of 2013 revealed probably normal EF Echocardiogram of February 02, 2022 revealed ejection fraction of 54%, mild dilatation of right ventricle with normal systolic function and no valvular disease. Echocardiogram of May 29, 2023 had reported ejection fraction of 50% and no severe valvular disease Echocardiogram of September 16, 2024 reported ejection fraction 50-55%, mild left atrial enlargement, trace MR/TR and right ventricular systolic pressure of less than 35 mm Hg Nuclear stress test of September 20, 2023 (performed in the office) reported no gross ischemia/scar, ejection fraction of 50% WBC: 18.8 - 8.3 - 10.8 Creatinine: 1.14 - 1.00 - 0.78 Potassium: 5.0 - 4.6 - 4.7 Femur x-ray reported: Significantly displaced partially comminuted subtrochanteric femoral fracture extending into the proximal diaphysis. Soft tissues are unremarkable. Hip x-ray reported: Acute comminuted fracture of the left proximal shaft involving the intertrochanteric region. The hip joint is not included in the field of view. The overlying soft tissues unremarkable. CT of the left hip reported: Redemonstration of complex comminuted intertrochanteric fracture of the proximal femur extending into the proximal femoral diaphysis. Moderate degenerative changes of the left hip joint. Chest xry revealed: IMPRESSION: Cardiomegaly with pulmonary vascular congestion and bilateral patchy airspace opacities. Small bilateral pleural effusions, [id number]. EKG revealed: NSR, no specific ST T changes Tele reveals sinus rhythm Echocardiogram revealed: Technically limited study secondary to poor acoustic windows. Left ventricle: Mild Concentric left ventricular hypertrophy was seen. LVEF was around 55%. Right ventricle was normal size with normal systolic function. Mild right ventricular hypertrophy was seen. Atria were not well- visualized. Aortic valve: Aortic valve was trileaflet. There was no aortic insufficiency/stenosis. Mild mitral/tricuspid regurgitation was observed. Pulmonary valve was not well visualized. Right ventricular systolic pressure was assessed normal at 35 mm Hg. There was no pericardial effusion. Patient is a 64-year-old gentleman who presented with post mechanical fall and left hip fracture. Patient is to go for orthopedic surgery and Orthopedic requested for risk stratification prior to surgery. Patient does have history of morbid obesity/diastolic heart failure/COPD (on home oxygen)/diabetes mellitus/rheumatoid arthritis. Echocardiogram was unrevealing of any significant valvular disease and reported preserved left ventricular systolic function. We do have a nuclear stress test of September 2023 which did not reveal any ischemia. Status post mechanical fall Hip fracture Diastolic heart failure, compensated Chronic respiratory failure Morbid obesity Diabetes Hypertension Cardiac suggestion for management: Manage on telemetry bed Follow-up electrolytes and kidney function tests and correct abnormalities Cardiac-nicolas, the patient is considered moderate risk patient for moderate risk orthopedic/hip surgery. Cardiac-nicolas, you can proceed with orthopedic/hip surgery under appropriate intra and postoperative hemodynamic monitoring. Avoid hypotension. s/p Ortho surgery DVT prophylaxis as per primary team Cardiac nicolas, is stable and can be followed as outpatient Further evaluation and management depends on the above and clinical course A total of 55 minutes was spent reviewing the patient record, examining the patient, making a diagnostic and therapeutic plan, discussing this plan with medical personnel, following up on diagnostic studies and following the patient for clinical stability excluding any and all procedures. At least 50% of this time was spent in direct, [id number] contact. Thank you for allowing me to participate in this patient's care. Further recommendations will depend on patient's clinical course. Please do not hesitate to contact me if you have any questions or concerns. This medical document was created using electronic medical record system with [email or web address] computerized dictation system. Although this document has been carefully reviewed, there may still be some phonetic and typographical errors. These areas are purely typographical due to the imperfection of the software programs, and do not reflect any compromise in the patient's medical care. Plan discussed with: Patient, Other (nurse) ABDIRIZAK REDMOND MD Oct 31, 2025 08:46
--- NOTE | 2025-10-31 10:15 | DVHPN2 ---
Reviewed: Care Plan, H&P, Labs, Medications, Previous Orders, Radiology Changes from previous H/P or p: No Changes Eyes: No Pain, No Vision change, No Conjunctivae inflammation, No Eyelid inflammation, No Other, No Redness ENT: No Ear pain, No Ear discharge, No Nose pain, No Nose discharge, No Nose congestion, No Mouth pain, No Mouth swelling, No Throat pain, No Throat swelling, No Other Cardiovascular: No Chest Pain, No Palpitations, No Orthopnea, No Paroxysmal Noc. Dyspnea, No Edema, No Lt Headedness, No Other Respiratory: No Cough, No Dry, No Shortness of breath, No SOB with excertion, No Wheezing, No Hemoptysis, No Pleuritic Pain, No Sputum, No Other Gastrointestinal: No Nausea, No Vomiting, No Abdominal Pain, No Diarrhea, No Constipation, No Melena, No Hematochezia, No Other Genitourinary: No Dysuria, No Frequency, No Incontinence, No Hematuria, No Retention, No Other Musculoskeletal: No other, No neck pain, No shoulder pain, No arm pain, No back pain, No hand pain; leg pain (left); No foot pain Skin: No Rash, No Lesions, No Jaundice, No Bruising, No Other Objective Vitals Vital Signs Date Time Temp Pulse Resp B/P (MAP) Pulse Ox O2 Delivery O2 Flow Rate FiO2 10/31/25 08:28 97 Bi-pap/CPAP 10/31/25 08:28 30 30 10/31/25 05:00 98.2 74 18 139/68 (91) 98.2 Intake/Output Intake and Output 10/31/25 07:00 Intake Total 1490 ml Output Total 1100 ml Balance 390 ml Intake Oral 1490 ml Output Urine Total 1100 ml Medications Current Medications Medications Dose Ordered Sig/Gil Route Start Time Stop Time Status Last Admin Dose Admin Sodium Chloride 1,000 ml @ 75 mls/hr [id number] IV 10/27/25 11:45 10/31/25 06:20 75 MLS/HR Acetaminophen/ Hydrocodone Bitart 1 tab Q4HP PRN PO 10/27/25 11:45 10/30/25 18:44 1 TAB Ondansetron HCl 4 mg Q4HP PRN IV 10/27/25 11:45 10/27/25 20:18 4 MG Docusate Sodium 100 mg BIDPRN PRN PO 10/27/25 11:45 Acetaminophen 650 mg Q6HP PRN PO 10/27/25 11:45 Morphine Sulfate 2 mg Q4HPRN PRN IV 10/27/25 12:00 10/30/25 10:16 2 MG Atorvastatin Calcium 40 mg HS PO 10/27/25 22:00 10/30/25 21:17 40 MG Terazosin HCl 5 mg DAILY PO 10/28/25 10:00 10/30/25 10:17 5 MG Diagnostic Test (Pha) 1 strip Q6HR 10/27/25 18:00 10/31/25 06:21 1 STRIP Insulin Human Regular Q6HR SC 10/27/25 18:00 10/31/25 06:25 2 UNITS Dextrose 50 ml UD PRN IV 10/27/25 12:15 Patient Own Medication 1 puff DAILY PO 10/28/25 10:00 Insulin Glargine 50 units HS SC 10/27/25 22:00 10/30/25 21:16 50 UNITS Sertraline HCl 100 mg DAILY PO 10/28/25 10:00 10/30/25 10:15 100 MG Lactated Ringer's 1,000 ml @ 100 mls/hr Q10H IV 10/28/25 11:00 10/28/25 12:18 100 MLS/HR Sodium Chloride 10 ml Q8HR IV 10/28/25 14:00 10/31/25 06:21 10 ML Enoxaparin Sodium 40 mg DAILY SC 10/29/25 10:00 10/30/25 10:15 40 MG Acetaminophen/ Hydrocodone Bitart 1 tab Q4HP PRN PO 10/28/25 11:00 10/28/25 13:49 1 TAB Oxycodone HCl 10 mg ONCE PRN PO 10/28/25 11:15 10/28/25 11:51 10 MG Laboratory Results Laboratory Tests 10/29/25 04:38 Urinalysis Test 10/27/25 06:15 Urine Color Light-yellow (Yellow) Urine Clarity Clear (Clear) Urine pH 5.0 (5.0-9.0) Urine Specific [place] 1.027 (1.001-1.035) Urine Protein Trace (Negative) H Urine Ketones Negative (Negative) Urine Blood Negative /uL (Negative) Urine Nitrite Negative (Negative) Urine Bilirubin Negative (Negative) Urine Urobilinogen Normal mg/dL (Negative) Urine Leukocyte Esterase Negative /uL (Negative) Urine RBC 3 /hpf (0 - 3) Urine Microscopic WBC 2 /HPF (0-3) Urine Squamous Epithelial Cells Few /hpf (<5) Urine Bacteria Few /hpf (None Seen) H Urine Yeast (Budding) Occasional /hpf (None Urine Sperm Present /hpf (None Seen) Urine Glucose 4+ mg/dL (Normal) H Labs and/or images reviewed: Labs reviewed by me, Image(s) reviewed by me Assessment/Plan Assessment/Plan Intertrochanteric fracture left femur Status post Open reduction internal fixation left proximal femur subtrochanteric and Open reduction cephalomedullary nail left intertrochanteric fracture orthopedic Dr. Dexter on 10/28/2025 Mechanical fall COPD Sleep apnea Hypertension Diabetes cholesterol Asthma History of arthritis Morbid obesity BMI of 44 DVT prophylaxis: Lovenox Daughter Sherly at bedside [phone] Per Ortho recommendation [facility] The patient and the daughter agree No new complaints [facility] Plan discussed with: Patient My Orders Orders - JOSE CURRIE MD Procedure Category Date Status Time Discharge DISCHARGE 10/30/25 Transmitted 10:27 * [employer]per CONS 10/30/25 Transmitted Consult * [employer] Operator Helper CONS 10/31/25 Verified Consult Date of Service: Oct 31, 2025 Billing Provider: JOSE CURRIE MD Common Visit Codes: [id number] INP/OBS CARE(HIGH) JOSE CURRIE MD Oct 31, 2025 10:15
== END 2025-10-31 15:20 | DRG 481 ==
LOC: EDBD 02:54 → ER 02:54 → OVERFLOW 11:31 → WEST WING 22:31 → TELE-WESTW 10-29 12:42
PROVIDERS: ADMIT Family Medicine; ATTEND Family Medicine
PROC: 0QS704Z Reposition Left Upper Femur with Internal Fixation Device, Open Approach (ICD-10-PCS; principal; 2025-10-28 07:35)
DX: S72.142A Displaced intertrochanteric fracture of left femur, initial encounter for closed fracture (principal); I13.0 Hypertensive heart and chronic kidney disease with heart failure and stage 1 through stage 4 chronic kidney disease, or unspecified chronic kidney disease; Z68.41 Body mass index [BMI] 40.0-44.9, adult; I50.32 Chronic diastolic (congestive) heart failure; Z99.81 Dependence on supplemental oxygen; J96.10 Chronic respiratory failure, unspecified whether with hypoxia or hypercapnia; S72.22XA Displaced subtrochanteric fracture of left femur, initial encounter for closed fracture; J44.9 Chronic obstructive pulmonary disease, unspecified; F32.A Depression, unspecified; E11.22 Type 2 diabetes mellitus with diabetic chronic kidney disease; M06.9 Rheumatoid arthritis, unspecified; I07.1 Rheumatic tricuspid insufficiency; E66.01 Morbid (severe) obesity due to excess calories; G47.30 Sleep apnea, unspecified; G47.33 Obstructive sleep apnea (adult) (pediatric); E78.1 Pure hyperglyceridemia; J44.89 Other specified chronic obstructive pulmonary disease; N18.1 Chronic kidney disease, stage 1; N40.0 Benign prostatic hyperplasia without lower urinary tract symptoms; W01.0XXA Fall on same level from slipping, tripping and stumbling without subsequent striking against object, initial encounter; Y92.002 Bathroom of unspecified non-institutional (private) residence as the place of occurrence of the external cause; Z79.4 Long term (current) use of insulin; Z79.51 Long term (current) use of inhaled steroids; Z79.84 Long term (current) use of oral hypoglycemic drugs; Z79.899 Other long term (current) drug therapy; Z80.1 Family history of malignant neoplasm of trachea, bronchus and lung; Z80.6 Family history of leukemia; Z87.891 Personal history of nicotine dependence
CPT/HCPCS: 36415; 71045; 73501; 73502; 73700; 76000; 80048; 80053; 81001; 82962; 83036; 85025; 86850; 86900; 86901; 93005; 93306; 94660; 97110; 97116; 97163; 97530; G0378; J0131; J0169; J0690; J1100; J1815; J1885; J2405; J2704; J3490